=== PATIENT | female | born 1965 | race Caucasian/White ===

== ENCOUNTER 2025-02-06 03:49 | Inpatient (IN) | payer MEDICARE, BC ==
[2025-02-06] MEDS ORDERED: ALBUTEROL NEBULIZED 2.5 MG/3 ML INHALATION PRN (04:15)
[2025-02-06] MEDS ORDERED: PNEUMONIA PROTOCOL UTILIZED 1 EACH MISC PO PRN (04:15)
--- NOTE | 2025-02-06 04:18 | ED ---
General Adult HPI - General Chief complaint: Shortness of Breath Stated complaint: EFREM Time Seen by Provider: 02/06/25 03:56 Source: patient, EMS Mode of arrival: EMS - History of Present Illness Initial comments: This is a pleasant 59-year-old female past medical history of diabetes presenting today transferred from [facility] after being found to have bilateral pneumonia with an elevated troponin. Patient states symptoms ongoing x 1 week. She states every time she gets up to walk to the bathroom or across her bedroom after walking approximate 20 feet she becomes significantly short of breath and then begins to feel panicked making her more short of breath. States that her son had upper respiratory symptoms 2 weeks ago and her is currently been treated bronchitis. Patient has not had any sputum production, fevers or chills. Denies palpitations, abdominal pain, melena or hematochezia. States that she typically gets bronchitis annually however her symptoms are different from when she is experienced over the course last week. She denies any lower extremity swelling. States she feels left-sided chest tightness when she ambulates for any distance but currently denies any chest pain. Patient has no history ACS, COPD or asthma. She is a non-smoker. States that her siblings and her father all have significant cardiac history with prior cardiac stents, had a brother who from ACS. - Related Data Home Medications Medication Instructions Recorded Confirmed Cyclobenzaprine [Flexeril] 10 mg PO DAILY PRN 02/06/25 02/06/25 Cyclobenzaprine [Flexeril] 10 mg PO HS 02/06/25 02/06/25 Empagliflozin [Jardiance] 25 mg PO DAILY 02/06/25 02/06/25 Escitalopram [Lexapro] 20 mg PO BID 02/06/25 02/06/25 HYDROcodone/APAP 7.5-325MG [[place] 1 tab PO TID 02/06/25 02/06/25 7.5-325] INSULIN ASPART (NovoLOG) [NovoLOG 35 unit SQ AC-TID 02/06/25 02/06/25 (formulary)] Insulin Glargine (Lantus) [Lantus 100 unit SQ BID 02/06/25 02/06/25 Vial] Omeprazole [PriLOSEC] 40 mg PO DAILY 02/06/25 02/06/25 buPROPion HCL [Wellbutrin XL] 150 mg PO DAILY 02/06/25 02/06/25 busPIRone HCL 15 mg PO DAILY 02/06/25 02/06/25 Previous Rx's Medication Instructions Recorded Aspirin 81 mg PO DAILY #30 tab 02/10/25 Atorvastatin [Lipitor] 80 mg PO HS 30 Days #30 tab 02/10/25 Furosemide [Lasix] 20 mg PO BID@0900,1600 30 Days #60 02/10/25 tab Losartan [Cozaar] 25 mg PO DAILY 30 Days #30 tab 02/10/25 Metoprolol Succinate (ER) [Toprol 75 mg PO DAILY 30 Days #30 tab 02/10/25 XL] Nitroglycerin Sl Tabs [Nitrostat] 0.4 mg SUBLINGUAL Q5M PRN #30 tab 02/10/25 Spironolactone [Aldactone] 25 mg PO DAILY 30 Days #30 tab 02/10/25 Ticagrelor [Brilinta] 90 mg PO BID 30 Days #60 tab 02/10/25 Allergies Allergy/AdvReac Type Severity Reaction Status Date / Time No Known Allergies Allergy Verified 02/06/25 08:43 Review of Systems ROS Statement: Those systems with pertinent positive or pertinent negative responses have been documented in the HPI. ROS Other: All systems not noted in ROS Statement are negative. Past Medical History Past Medical History: Diabetes Mellitus History of Any Multi-Drug Resistant Organisms: None Reported Past Surgical History: Cholecystectomy, Hernia Repair, Hysterectomy, Orthopedic Surgery, Tonsillectomy Smoking Status: Never smoker General Exam - General Exam Comments Initial Comments: PE: CONSTITUTIONAL: No apparent distress, well appearing SKIN: Warm, dry, no jaundice, hives or petechiae EYES: Pupils are equally round, extraocular movements intact without nystagmus, clear conjunctiva, non-icteric sclera HENT: Normocephalic, atraumatic, moist mucus membranes, oropharynx clear without exudates NECK: , Full range of motion, normal appearance PULMONARY: Scant rhonchi in the mid left lung field, decreased breath sounds in the bases, mild tachypnea, no excess or muscle use or stridor no wheezes CARDIOVASCULAR: Mild echocardiac, regular rate, rhythm, normal S1 and S2. No appreciated murmurs, rubs or gallops. Strong radial pulses with intact distal perfusion. Bilateral 1+ nonpitting edema GASTROINTESTINAL: Soft, active bowel sounds throughout, non-tender, non- distended, no palpable masses, no rebound or guarding. No hepatosplenomegaly MUSCULOSKELETAL: Extremities have no gross deformity NEUROLOGIC:_a/o x 3, GCS 15, normal mentation and speech. Moves all extremities x 4 without motor or sensory deficit PSYCHIATRIC:_normal mood and affect, thought process is clear and linear Course Vital Signs 02/06/25 02/06/25 02/06/25 03:51 03:58 06:03 Temperature 98.5 F 98.2 F Pulse Rate 106 H 93 Respiratory 24 24 18 Rate Blood Pressure 152/82 101/64 O2 Sat by Pulse 97 96 Oximetry 02/06/25 02/06/25 02/06/25 07:26 09:00 09:56 Temperature 98 F Pulse Rate 93 94 93 Respiratory 16 20 20 Rate Blood Pressure 115/73 117/69 117/69 O2 Sat by Pulse 96 98 97 Oximetry 02/06/25 02/06/25 02/06/25 11:00 12:00 13:00 Temperature Pulse Rate 85 86 83 Respiratory 16 20 16 Rate Blood Pressure 110/60 106/60 102/58 O2 Sat by Pulse 98 98 95 Oximetry 02/06/25 14:00 Temperature Pulse Rate 86 Respiratory 16 Rate Blood Pressure 104/68 O2 Sat by Pulse 98 Oximetry EKG Findings - EKG Comments: EKG Findings:: Sinus tachycardia, rate 106 beats minute IL interval 160 ms QT/QTc 355/470 ms, borderline left axis deviation, low voltage EKG, no ST elevations or depressions, no arrhythmia, right bundle branch block, compared to EKG performed at transferring facility, EKG here is low voltage compared to prior otherwise no significant changes Medical Decision Making - Medical Decision Making Was pt. sent in by a medical professional or institution (, PA, ROLLER COASTER ENGINEER, urgent care, hospital, or senior living...) When possible be specific @ -Patient was transferred from [place] emergency department Did you speak to anyone other than the patient for history (EMS, parent, family, police, friend...)? What history was obtained from this source I spoke with Dr. Pradhan, emergency physician at [facility], states patient is being transferred for community-acquired pneumonia with elevated troponin Did you review nursing and triage notes (agree or disagree)? Why? @ -[I reviewed nursing and triage notes] Were old charts reviewed (outside hosp., previous admission, EMS record, old EK G, old radiological studies, urgent care reports/EKG's, senior living records)? Report findings @ -[Medical records reviewed]-personally reviewed chart provided with patient from transferring facility EKG showed sinus rhythm, rate 98 bpm right bundle branch block, no ST elevations, compared to EKG performed on arrival here, EKG here is low voltage otherwise no significant changes from prior. Patient had a CTA chest done, reviewed report that states patient had pneumonia with small bilateral pleural effusions but no PE, at transferring facility patient was given 40 mg IV Lasix, Rocephin, azithromycin as well as aspirin, troponin at transferring facility 2.68, BNP 732, RSV flu testing negative Differential Diagnosis (chest pain, altered mental status, abdominal pain women, abdominal pain men, vaginal bleeding, weakness, fever, dyspnea, syncope, headache, dizziness, GI bleed, back pain, seizure, CVA, palpatations, mental health, musculoskeletal)? @ -Differential Dyspnea: Coronary syndrome, arrhythmia, tamponade, asthma, COPD, pulmonary embolism, pneumonia, pneumothorax, pulmonary effusion, anaphylaxis, diabetic ketoacidosis, flailed chest, pulmonary contusion, diaphragmatic rupture, anemia, neuromuscular, this is not meant to be an all-inclusive list. EKG interpreted by me (3pts min.). @ -[As above] X-rays interpreted by me (1pt min.). @ -[None done] CT interpreted by me (1pt min.). @ -[None done] U/S interpreted by me (1pt. min.). @ -[None done] What testing was considered but not performed or refused? (CT, X-rays, U/S, labs)? Why? @ -[None] What meds were considered but not given or refused? Why? @ -[None] Did you discuss the management of the patient with other professionals (professionals i.e. , PA, ROLLER COASTER ENGINEER, lab, RT, psych nurse, clinical social worker, bench technician, teacher, light armored reconnaissance officer, case loader operator)? Give summary @ -[No] Was smoking cessation discussed for >3mins.? @ -[No] Was critical care preformed (if so, how long)? Yes, 35 minutes Were there social determinants of health that impacted care today? How? (Homelessness, low income, unemployed, alcoholism, drug addiction, transportation, low edu. Level, literacy, decrease access to med. care, intermediate, rehab)? @ -[No] Was there de-escalation of care discussed even if they declined (Discuss DNR or withdrawal of care, Hospice)? @ -[No] What co-morbidities impacted this encounter? (DM, HTN, Smoking, COPD, CAD, Cancer, CVA, ARF, Chemo, Hep., AIDS, mental health diagnosis, sleep apnea, morbid obesity)? @Obesity Was patient admitted / discharged? Hospital course, mention meds given and route, prescriptions, significant lab abnormalities, going to OR and other pertinent info. @ -Admissionthis is a 59-year-old female history of diabetes presenting today as a transfer from [facility] after being found to have pneumonia with bilateral pleural effusions and an elevated troponin. Symptoms ongoing x 1 week. On arrival patient walked to the bathroom and upon returning from the bathroom was significantly dyspneic. With rest her symptoms improved. Pulse ox on room air between 90 to 96%. Patient was placed on 2 L for comfort. Mildly tachycardic with heart rate 100. Blood pressure stable. Scant rhonchi in the left midlung field. No increased work of breathing at rest. Discussed with patient plan for admission due to elevated troponin in setting of community- acquired pneumonia. Will repeat troponin here given a high-sensitivity troponin was used at transferring facility. Will repeat BNP as well. Patient agreeable plan for admission. BNP significantly to thousand 870, troponin is 1.910 this does appear to be down from troponin of 2.68 at transferring facility will continue to trend. She currently denies any chest pain. She did receive 40 mg IV Lasix prior to arrival will administer an additional 40 due to elevated BNP and pleural effusions. Case discussed with Dr. Lawrence, kindly accepts pt for admission. Undiagnosed new problem with uncertain prognosis? @ -[No] Drug Therapy requiring intensive monitoring for toxicity (Heparin, Nitro, Insulin, Cardizem)? @ -[No] Were any procedures done? @ -[No] Diagnosis/symptom? Elevated troponin, new onset CHF, bilateraly pneumonia Acute, or Chronic, or Acute on Chronic? @ -acute Uncomplicated (without systemic symptoms) or Complicated (systemic symptoms)? @ complicated Side effects of treatment? @ -[No] Exacerbation, Progression, or Severe Exacerbation? @ -[No] Poses a threat to life or bodily function? How? (Chest pain, [place], [place], pneumonia, PE, COPD, DKA, ARF, appy, cholecystitis, CVA, Diverticulitis, Homicidal, Suicidal, threat to staff... and all critical care pts) @Yes, if left untreated could lead to septic or cardiogenic shock and - Lab Data Result diagrams: 02/09/25 05:28 02/10/25 02:32 Disposition Clinical Impression: Community acquired pneumonia Disposition: ADMITTED IP TO THIS HOSP Condition: Stable
[2025-02-06 04:45] LABS: Basophils % (A) 0 %; Eosinophils # (A) 0.4 k/uL (0-0.7); Eosinophils % (A) 4 %; HCT 42.2 % (34.0-46.0); HGB 12.9 gm/dL (11.4-16.0); Hypochromasia Moderate; Lymphocytes # (A) 1.8 k/uL (1.0-4.8); Lymphocytes % (A) 17 %; MCH 25.8 pg (25.0-35.0); MCHC 30.5 g/dL (31.0-37.0); MCV 84.5 fL (80.0-100.0); Mean Platelet Volume 7.2; Monocytes # (A) 0.5 k/uL (0-1.0); Monocytes % (A) 5 %; Neutrophils # (A) 7.8 k/uL (1.3-7.7); Neutrophils % (A) 73 %; Platelet Count 311 k/uL (150-450); RBC 4.99 m/uL (3.80-5.40); RDW 14.5 % (11.5-15.5); WBC 10.7 k/uL (3.8-10.6)
[2025-02-06 05:10] LABS: ALT 21 U/L (4-34); AST 37 U/L (14-36); African American GFR (CKD) 76 (>60 ml/min/1.73 sqM); Albumin 3.4 g/dL (3.5-5.0); Alkaline Phosphatase 75 U/L (38-126); Anion Gap 11 mmol/L; Blood Urea Nitrogen 25 mg/dL (7-17); C Reactive Protein 3.6 mg/dL (<1.0); Carbon Dioxide 24 mmol/L (22-30); Chloride 103 mmol/L (98-107); Glucose 94 mg/dL (74-99); Magnesium 1.9 mg/dL (1.6-2.3); Non-African American GFR(CKD) 66 (>60 ml/min/1.73 sqM); Potassium 3.9 mmol/L (3.5-5.1); Sodium 138 mmol/L (137-145); Total Bilirubin 0.9 mg/dL (0.2-1.3); Total Protein 6.4 g/dL (6.3-8.2)
[2025-02-06 05:13] LABS: Prothrombin Time 10.9 sec (10.0-12.5)
[2025-02-06 05:15] LABS: NT-Pro-B-Type Natriuretic Pept 6870 pg/mL
[2025-02-06] MEDS: FUROSEMIDE 10 MG/ML 2 ML VIAL IV ONE (06:41)
[2025-02-06] MEDS: ENOXAPARIN 40 MG/0.4 ML SYRINGE SQ SCH (09:15)
[2025-02-06] MEDS: ACETAMINOPHEN TAB 325 MG TAB PO PRN (09:54)
[2025-02-06] MEDS ORDERED: HEPARIN SODIUM 1,000 UN/ML (10ML VL) IV PRN (10:10)
[2025-02-06] MEDS ORDERED: NITROGLYCERIN SL TABS 0.4 MG TAB SUBLINGUAL PRN ×2 (10:16→15:38)
[2025-02-06] MEDS ORDERED: ALPRAZolam 0.5 MG TAB PO PRN (10:16)
[2025-02-06] MEDS ORDERED: ALPRAZolam 0.25 MG TAB PO PRN (10:16)
[2025-02-06] MEDS: METOPROLOL TARTRATE 25 MG TAB PO SCH (10:29)
[2025-02-06] MEDS: ATORVASTATIN 80 MG TAB PO STA (10:30)
[2025-02-06] MEDS: HEPARIN SODIUM 1,000 UN/ML (10ML VL) IV ONE (10:30)
[2025-02-06] MEDS: HEPARIN SOD,PORK IN 0.45% NACL 25,000 UNIT in 0.45% NACL 1 250ML.BAG IV SCH (10:31)
[2025-02-06] MEDS: SODIUM CHLORIDE 0.9% 1,000 ML in EMPTY BAG 1 BAG IV SCH ×2 (10:39→17:25)
[2025-02-06] MEDS: ASPIRIN 325 MG TAB PO STA (10:39)
--- NOTE | 2025-02-06 10:55 | P.CRDCN ---
History of Present Illness History of present illness: HISTORY OF PRESENT ILLNESS: This is a 59-year-old female with a past medical history significant for diabetes and obesity. Patient does not follow with a investments manager. We have been asked to see the patient in consultation for elevated troponin. Patient examined at the bedside in the emergency room. Patient states she has been feeling short of breath for the past week. She states her had bronchitis and she thought she had it as well. She states she has been getting short of breath walking from 1 room to another. She denies any chest pain or pressure. She states that she went to an urgent care on Sunday and was told that her lungs were fine. However she states that her symptoms continued and she messaged her doctor again and was told to come to the emergency room. Patient presented to [facility] and was diagnosed with pneumonia. She was also found to have elevated troponins and was transferred to [facility] for further evaluation. She denies any known history of CAD. She reports having a cardiac catheterization greater than 10 years ago that was normal to her knowledge. She does report a significant family history of premature CAD. DIAGNOSTICS: - EKG reveals sinus tachycardia with nonspecific ST-T wave changes - CT scan obtained at [facility] revealed bilateral pneumonia, no evidence of pulmonary embolism, pleural effusions, and coronary artery calcifications. - Laboratory data: WBC 10.7. Hemoglobin 12.9. Platelet count 311. Sodium 138. Potassium 3.9. BUN 25. Creatinine 0.94. Troponin 1.910. 1.940. Troponin at outside facility 2.68. proBNP 6870. - Current home cardiac medications include none - No previous echocardiogram, stress test, or cardiac catheterization available in EMR for review REVIEW OF SYSTEMS: At the time of my exam: CONSTITUTIONAL: Denies fever or chills. HEENT: Denies blurred vision, vision changes, or eye pain. Denies hemoptysis CARDIOVASCULAR: Denies chest pain. Denies orthopnea. Denies PND. Denies palpitations RESPIRATORY: Denies shortness of breath. GASTROINTESTINAL: Denies abdominal pain. Denies nausea or vomiting. HEMATOLOGIC: Denies bleeding disorders. GENITOURINARY: Denies any blood in urine. SKIN: Denies pruitis. Denies rash. PHYSICAL EXAM: VITAL SIGNS: Reviewed. GENERAL: Well-developed in no acute distress. HEENT: Head is normocephalic. Pupils are equal, round. Sclerae anicteric. Mucous membranes of the mouth are moist. Neck supple. No JVD or thyromegaly LUNGS: Respirations even and unlabored. Lungs essentially clear to auscultation bilaterally. HEART: Regular rate and rhythm. S1 and S2 heard. ABDOMEN: Soft. Nondistended. Nontender. EXTREMITIES: Normal range of motion. No clubbing or cyanosis. Peripheral pulses intact. No lower extremity edema NEUROLOGIC: Awake and alert. Oriented x 3. ASSESSMENT: Shortness of breath Non-STEMI Coronary artery calcifications, per CT Acute heart failure, type unknown, echo pending, proBNP 6870 Bilateral pleural effusions Bilateral pneumonia, per CTA at [facility] Diabetes Morbid obesity: BMI 47.4 Family history of premature coronary artery disease PLAN: Obtain 2D echo to assess cardiac structure and function Begin IV heparin Begin aspirin, atorvastatin, and metoprolol Give 1 dose of IV Lasix 40 mg Check lipid panel and hemoglobin A1c Patient to undergo cardiac catheterization today with Dr. De Paz Further recommendations pending patient course Nurse practitioner note has been reviewed by physician. Signing provider agrees with the documented findings, assessment, and plan of care documented by TERMITE TREATER as a scribe. Past Medical History Past Medical History: Diabetes Mellitus History of Any Multi-Drug Resistant Organisms: None Reported Past Surgical History: Cholecystectomy, Hernia Repair, Hysterectomy, Orthopedic Surgery, Tonsillectomy Smoking Status: Never smoker Medications and Allergies Home Medications Medication Instructions Recorded Confirmed Type Cyclobenzaprine [Flexeril] 10 mg PO DAILY PRN 02/06/25 02/06/25 History Cyclobenzaprine [Flexeril] 10 mg PO HS 02/06/25 02/06/25 History Empagliflozin [Jardiance] 25 mg PO DAILY 02/06/25 02/06/25 History Escitalopram [Lexapro] 20 mg PO BID 02/06/25 02/06/25 History HYDROcodone/APAP 7.5-325MG [[place] 1 tab PO TID 02/06/25 02/06/25 History 7.5-325] INSULIN ASPART (NovoLOG) [NovoLOG 35 unit SQ AC-TID 02/06/25 02/06/25 History (formulary)] Insulin Glargine (Lantus) [Lantus 100 unit SQ BID 02/06/25 02/06/25 History Vial] Omeprazole [PriLOSEC] 40 mg PO DAILY 02/06/25 02/06/25 History buPROPion HCL [Wellbutrin XL] 150 mg PO DAILY 02/06/25 02/06/25 History busPIRone HCL [Buspirone HCl] 15 mg PO DAILY 02/06/25 02/06/25 History Allergies Allergy/AdvReac Type Severity Reaction Status Date / Time No Known Allergies Allergy Verified 02/06/25 08:43 Physical Exam Vitals: Vital Signs Temp Pulse Resp BP Pulse Ox 02/06/25 09:56 93 20 117/69 97 02/06/25 09:00 94 20 117/69 98 02/06/25 07:26 98 F 93 16 115/73 96 02/06/25 06:03 98.2 F 93 18 101/64 96 02/06/25 03:58 98.5 F 106 H 24 152/82 97 02/06/25 03:51 24 Intake and Output 02/05/25 02/06/25 02/06/25 22:59 06:59 14:59 Other: Weight 129.274 kg Results 02/06/25 04:38 02/06/25 04:38 Cardiac Enzymes 02/06/25 02/06/25 02/06/25 Range/Units 04:38 04:38 07:14 AST 37 H (14-36) U/L Troponin I 1.910 H* 1.940 H* (0.000-0.034) ng/mL Coagulation 02/06/25 Range/Units 04:38 PT 10.9 (10.0-12.5) sec APTT 22.0 (22.0-30.0) sec CBC 02/06/25 Range/Units 04:38 WBC 10.7 H (3.8-10.6) k/uL RBC 4.99 (3.80-5.40) m/uL Hgb 12.9 (11.4-16.0) gm/dL Hct 42.2 (34.0-46.0) % Plt Count 311 (150-450) k/uL Comprehensive Metabolic Panel 02/06/25 Range/Units 04:38 Sodium 138 (137-145) mmol/L Potassium 3.9 (3.5-5.1) mmol/L Chloride 103 (98-107) mmol/L Carbon Dioxide 24 (22-30) mmol/L BUN 25 H (7-17) mg/dL Creatinine 0.94 (0.52-1.04) mg/dL Glucose 94 (74-99) mg/dL Calcium 9.0 (8.4-10.2) mg/dL AST 37 H (14-36) U/L ALT 21 (4-34) U/L Alkaline Phosphatase 75 (38-126) U/L Total Protein 6.4 (6.3-8.2) g/dL Albumin 3.4 L (3.5-5.0) g/dL Current Medications Generic Name Dose Route Start Last Admin Trade Name Freq PRN Reason Stop Dose Admin Acetaminophen 650 mg 02/06/25 04:15 02/06/25 09:54 Acetaminophen Tab 325 Mg Tab PO 650 mg Q6HR PRN Administration Fever and/ or Pain Albuterol Sulfate 2.5 mg 02/06/25 04:15 Albuterol Nebulized 2.5 Mg/3 Ml INHALATION RT-Q4H PRN Shortness Of Breath Or Wheezing Azithromycin 500 mg 02/07/25 09:00 Azithromycin 500 Mg Tab PO 02/08/25 09:01 DAILY [facility] Protocol Enoxaparin Sodium 40 mg 02/06/25 09:00 02/06/25 09:15 Enoxaparin 40 Mg/0.4 Ml Syringe SQ 40 mg DAILY KENYA Administration Ceftriaxone Sodium 2 gm/ 50 mls @ 100 mls/hr 02/07/25 09:00 Sodium Chloride IVPB 02/10/25 09:29 Q24HR KENYA Protocol Miscellaneous Information 1 each 02/06/25 04:15 Pneumonia Protocol Utilized 1 Each Misc PO ONCE PRN Per Protocol Intake and Output 02/05/25 02/06/25 02/06/25 22:59 06:59 14:59 Other: Weight 129.274 kg 02/06/25 04:38 02/06/25 04:38
[2025-02-06 11:15] LABS: Basophils % (A) 0 %; Eosinophils # (A) 0.6 k/uL (0-0.7); Eosinophils % (A) 5 %; HCT 44.5 % (34.0-46.0); HGB 13.5 gm/dL (11.4-16.0); Hypochromasia Slight; Lymphocytes # (A) 1.9 k/uL (1.0-4.8); Lymphocytes % (A) 16 %; MCH 25.7 pg (25.0-35.0); MCHC 30.4 g/dL (31.0-37.0); MCV 84.6 fL (80.0-100.0); Mean Platelet Volume 7.5; Monocytes # (A) 0.6 k/uL (0-1.0); Monocytes % (A) 5 %; Neutrophils # (A) 8.6 k/uL (1.3-7.7); Neutrophils % (A) 71 %; Platelet Count 299 k/uL (150-450); RBC 5.26 m/uL (3.80-5.40); RDW 14.7 % (11.5-15.5)
[2025-02-06] MEDS: FUROSEMIDE 10 MG/ML 4 ML VIAL IV STA (11:36)
[2025-02-06] MEDS: IV FLUID CONTINUATION 1,000 ML IV ONE (14:46)
[2025-02-06] MEDS: VERAPAMIL SYRINGE (5 MG/10 ML) INTRAARTER ONE (14:52)
[2025-02-06] MEDS: LIDOCAINE 1% INJ 10MG/ML (30 ML VIAL-PF) SQ ONE (14:52)
[2025-02-06] MEDS: MIDAZOLAM 2 MG/2 ML VIAL IVP ONE (14:52)
[2025-02-06] MEDS: HEPARIN SODIUM 1,000 UN/ML (10ML VL) IVP ONE (14:59)
[2025-02-06] MEDS: TICAGRELOR 90 MG TAB PO ONE (14:59)
[2025-02-06] MEDS: IOPAMIDOL-300 100ML BTL INJ ONE ×2 (15:09→15:37)
[2025-02-06 15:32] LABS: Chol/HDL Ratio 5.45 Ratio; LDL Cholesterol,Calculated 98.6 mg/dL (0.0-131.0)
[2025-02-06] MEDS: PHENYLEPHRINE-0.9% NACL SYG 1,000 MCG/10 ML SYRINGE IVP ONE (15:35)
[2025-02-06] MEDS: niCARdipine Syringe (1,000 mcg/10 mL) INTRAARTER ONE (15:35)
[2025-02-06] MEDS ORDERED: ATROPINE SULFATE 0.1 MG/ML 10ML SYRINGE IV PRN (15:38)
[2025-02-06] MEDS ORDERED: RX INFO: IV CONTRAST WAS GIVEN 1 EACH MISC MISCELLANE PRN (15:38)
[2025-02-06] MEDS ORDERED: ZOLPIDEM 5 MG TAB PO PRN (15:38)
[2025-02-06] MEDS ORDERED: MAG HYDROX/AL HYDROX/SIMETH 30 ML CUP PO PRN (15:38)
[2025-02-06 16:26] LABS: Glucose,Whole Blood 73 mg/dL (70-110)
[2025-02-06] MEDS ORDERED: CYCLOBENZAPRINE 10 MG TAB PO PRN (17:13)
--- NOTE | 2025-02-06 17:19 | P.HPIM ---
History of Present Illness H&P Date: 02/06/25 Chief Complaint: Shortness of breath 59-year-old female past medical history of diabetes presenting today transferred from [facility] after being found to have bilateral pneumonia with an elevated troponin. Patient states symptoms ongoing x 1 week. She states every time she gets up to walk to the bathroom or across her bedroom after walking approximate 20 feet she becomes significantly short of breath and then begins to feel panicked making her more short of breath. States that her son had upper respiratory symptoms 2 weeks ago and her is currently been treated bronchitis. Patient has not had any sputum production, fevers or chills. Denies palpitations, abdominal pain, melena or hematochezia. States that she typically gets bronchitis annually however her symptoms are different from when she is experienced over the course last week. She denies any lower extremity swelling. States she feels left-sided chest tightness when she ambulates for any distance but currently denies any chest pain. Patient has no history ACS, COPD or asthma. She is a non-smoker. States that her siblings and her father all have significant cardiac history with prior cardiac stents, had a brother who from ACS. - EKG reveals sinus tachycardia with nonspecific ST-T wave changes - CT scan obtained at [facility] revealed bilateral pneumonia, no evide nce of pulmonary embolism, pleural effusions, and coronary artery calcifications. - Laboratory data: WBC 10.7. Hemoglobin 12.9. Platelet count 311. Sodium 138. Potassium 3.9. BUN 25. Creatinine 0.94. Troponin 1.910. 1.940. Troponin at outside facility 2.68. proBNP 6870. Review of Systems REVIEW OF SYSTEMS: CONSTITUTIONAL: No fever, no malaise, no fatigue. HEENT: No recent visual problems or hearing problems. Denied any sore throat. CARDIOVASCULAR: No chest pain, orthopnea, PND, no palpitations, no syncope. PULMONARY: No shortness of breath, no cough, no hemoptysis. GASTROINTESTINAL: No diarrhea, no nausea, no vomiting, no abdominal pain. NEUROLOGICAL: No headaches, no weakness, no numbness. HEMATOLOGICAL: Denies any bleeding or petechiae. GENITOURINARY: Denies any burning micturition, frequency, or urgency. MUSCULOSKELETAL/RHEUMATOLOGICAL: Denies any joint pain, swelling, or any muscle pain. ENDOCRINE: Denies any polyuria or polydipsia. The rest of the 14-point review of systems is negative. Past Medical History Past Medical History: Diabetes Mellitus History of Any Multi-Drug Resistant Organisms: None Reported Past Surgical History: Cholecystectomy, Hernia Repair, Hysterectomy, Orthopedic Surgery, Tonsillectomy Smoking Status: Never smoker Medications and Allergies Home Medications Medication Instructions Recorded Confirmed Type Cyclobenzaprine [Flexeril] 10 mg PO DAILY PRN 02/06/25 02/06/25 History Cyclobenzaprine [Flexeril] 10 mg PO HS 02/06/25 02/06/25 History Empagliflozin [Jardiance] 25 mg PO DAILY 02/06/25 02/06/25 History Escitalopram [Lexapro] 20 mg PO BID 02/06/25 02/06/25 History HYDROcodone/APAP 7.5-325MG [Roberts 1 tab PO TID 02/06/25 02/06/25 History 7.5-325] INSULIN ASPART (NovoLOG) [NovoLOG 35 unit SQ AC-TID 02/06/25 02/06/25 History (formulary)] Insulin Glargine (Lantus) [Lantus 100 unit SQ BID 02/06/25 02/06/25 History Vial] Omeprazole [PriLOSEC] 40 mg PO DAILY 02/06/25 02/06/25 History buPROPion HCL [Wellbutrin XL] 150 mg PO DAILY 02/06/25 02/06/25 History busPIRone HCL [Buspirone HCl] 15 mg PO DAILY 02/06/25 02/06/25 History Allergies Allergy/AdvReac Type Severity Reaction Status Date / Time No Known Allergies Allergy Verified 02/06/25 08:43 Physical Exam Vitals: Vital Signs Temp Pulse Resp BP Pulse Ox 02/06/25 12:00 86 20 106/60 98 02/06/25 11:00 85 16 110/60 98 02/06/25 09:56 93 20 117/69 97 02/06/25 09:00 94 20 117/69 98 02/06/25 07:26 98 F 93 16 115/73 96 02/06/25 06:03 98.2 F 93 18 101/64 96 02/06/25 03:58 98.5 F 106 H 24 152/82 97 02/06/25 03:51 24 Intake and Output 02/05/25 02/06/25 02/06/25 22:59 06:59 14:59 Other: Weight 129.274 kg CONSTITUTIONAL: No apparent distress, well appearing SKIN: Warm, dry, no jaundice, hives or petechiae EYES: Pupils are equally round, extraocular movements intact without nystagmus, clear conjunctiva, non-icteric sclera HENT: Normocephalic, atraumatic, moist mucus membranes, oropharynx clear without exudates NECK: , Full range of motion, normal appearance PULMONARY: Scant rhonchi in the mid left lung field, decreased breath sounds in the bases, mild tachypnea, no excess or muscle use or stridor no wheezes CARDIOVASCULAR: Mild echocardiac, regular rate, rhythm, normal S1 and S2. No appreciated murmurs, rubs or gallops. Strong radial pulses with intact distal perfusion. Bilateral 1+ nonpitting edema GASTROINTESTINAL: Soft, active bowel sounds throughout, non-tender, non- distended, no palpable masses, no rebound or guarding. No hepatosplenomegaly MUSCULOSKELETAL: Extremities have no gross deformity NEUROLOGIC:_a/o x 3, GCS 15, normal mentation and speech. Moves all extremities x 4 without motor or sensory deficit PSYCHIATRIC:_normal mood and affect, thought process is clear and linear Results CBC & Chem 7: 02/06/25 10:57 02/06/25 04:38 Labs: Abnormal Lab Results - Last 24 Hours (Table) 02/06/25 02/06/25 02/06/25 Range/Units 04:38 04:38 04:38 WBC 10.7 H (3.8-10.6) k/uL MCHC 30.5 L (31.0-37.0) g/dL Neutrophils # 7.8 H (1.3-7.7) k/uL BUN 25 H (7-17) mg/dL AST 37 H (14-36) U/L Troponin I 1.910 H* (0.000-0.034) ng/mL C-Reactive Protein 3.6 H (<1.0) mg/dL Albumin 3.4 L (3.5-5.0) g/dL 02/06/25 02/06/25 Range/Units 07:14 10:57 WBC 12.0 H (3.8-10.6) k/uL MCHC 30.4 L (31.0-37.0) g/dL Neutrophils # 8.6 H (1.3-7.7) k/uL BUN (7-17) mg/dL AST (14-36) U/L Troponin I 1.940 H* (0.000-0.034) ng/mL C-Reactive Protein (<1.0) mg/dL Albumin (3.5-5.0) g/dL Assessment and Plan Assessment: 1. Shortness of breath; acute CHF -BNP is elevated at 6870 -Patient has received 1 dose of IV Lasix 40 mg; cardiology on board -Recommending 2D echo; further recommendations once echocardiogram is completed 2. Non-STEMI -Patient has been placed on IV heparin; has been placed on aspirin, atorvastatin and metoprolol -Cardiology planning cardiac catheterization -Coronary artery calcifications, per CT 3. Bilateral pleural effusions; likely related to acute CHF versus pneumonia -Patient has been placed on IV diuretic; continue IV antibiotics 4. Bilateral pneumonia, per CTA at [facility] -Ceftriaxone 2 g IV daily; azithromycin 500 mg IV daily; will monitor CBC, CRP and procalcitonin -Recommend blood cultures and sputum culture 5. Diabetes mellitus with long-term insulin use; patient takes Lantus 100 mg twice daily, NovoLog 35 units subcu before every meal; Jardiance 25 mg daily; we will resume home regimen after cardiac catheterization; monitor Accu-Cheks q. ACH S with insulin sliding scale 6. Hypertension; metoprolol 25 mg twice daily 7. Hyperlipidemia; Lipitor 80 mg p.o. nightly 8. Morbid obesity: BMI 47.4; patient educated on need for weight reduction DVT prophylaxis; SCD/IV heparin CODE STATUS; full code
[2025-02-06 19:53] LABS: Glucose,Whole Blood 126 mg/dL (70-110)
--- NOTE | 2025-02-06 19:55 | P.PCN ---
Date of Procedure: 02/06/25 Operative Findings: CARDIAC CATHETERIZATION AND PERCUTANEOUS CORONARY INTERVENTION PERFORMING PHYSICIAN: Valentín De Paz MD, [facility] PROCEDURE PERFORMED: 1. Selective right and left coronary angiogram and left heart catheterization 2. Successful stenting of mid RCA using 4.0 x 38 mm Xience ENEDELIA with an excel lent angiographic results 3. Successful stenting of the mid LCx using 2.25 x 18 mm Xience ENEDELIA with an excellent angiographic results 4. Adjunctive use of IVUS 4. Ultrasound-guided access of the right radial artery INDICATION: Acute non-ST elevation myocardial infarction COMPLICATION: None APPROACH: Right radial artery LEVEL OF SEDATION: Moderate with the sedation time off 48 minutes PROCEDURE DESCRIPTION: After obtaining informed consent the patient was brought to the cardiac Sugar Presser with right radial artery was cannulated using micropuncture technique under ultrasound guidance a micropuncture wire passed easily then I placed a 6 [place] 11 cm sheath at the right radial artery and give the patient 2 mg of verapamil intra-arterial and 5000's of heparin intravenous with continuous ACT monitoring. Selective right and left coronary angiogram and left heart catheterization performed using JR4 and JL 3.5 catheters. Left heart catheterization was performed using the JR4 catheter which crossed the aortic valve. After that I decided to intervene on the RCA with anticoagulation was initiated using heparin with continuous ACT monitoring. Subsequently I did engage the RCA using JR4 guiding catheter. I did wired using a run-through wire. IVUS was performed and showed a diameter between 3.5 to 4 mm. Predilatation was performed using 3.5 mm noncompliant balloon before I deployed 4.0 x 38 mm stent where the stent was positioned under fluoroscopy guidance and deployed under fluoroscopy guidance and postdilated using 4 mm NC balloon with final angiogram showing excellent angiographic results with BEAAT-3 flow. After that I decided to intervene on the left circumflex coronary artery. I did engage the left main using JL 3.5 guiding catheter with I did wired the left circumflex and cross acute total occlusion using a run-through wire. IVUS was also performed and showed a diameter around 2.25 mm. I did predilatation using 2.0 mm balloon before I deployed 2.25 x 18 mm stent where the stent was positioned under fluoroscopy guidance and deployed under fluoroscopy guidance. Postdilatation was performed using 2.5 mm NC balloon. Final angiogram showed excellent angiographic results and the procedure was completed with no complication SELECTIVE CORONARY ANGIOGRAM: The right coronary artery: Large caliber vessel and a dominant vessel. The RCA has a plaque rupture in the midportion with BEATA II flow and lesion appears to be in the range of 99.9% Left main: Is angiographically normal The left circumflex: Large caliber vessel nondominant vessel and the LCx appears to be occluded in the AV groove The left anterior descending artery: Large caliber vessel. The LAD has mild to moderate diffuse disease with no evidence of high-grade stenosis identified. HEMODYNAMICS: LVEDP was about 20 mmHg with no significant gradient across aortic valve CONCLUSION: 1. Critical disease involving the mid RCA. I did perform successful PCI of the mid RCA with an excellent angiographic results 2. Occluded left circumflex. I did perform successful PCI of the LCx as described above with an excellent angiographic results 3. Mild to moderate diffuse disease involving the LAD with no evidence of high- grade stenosis 4. Evaded left-sided filling pressure POSTPROCEDURE MANAGEMENT: 1. Dual antiplatelet therapy using aspirin and Brilinta for 12 month 2. Aggressive cholesterol control 3. Follow-up with the patient
[2025-02-06] MEDS: ESCITALOPRAM 20 MG TAB PO SCH (20:53)
[2025-02-06] MEDS: HYDROcodone/APAP 7.5-325MG 1 EACH TAB PO SCH (20:53)
[2025-02-06] MEDS: CYCLOBENZAPRINE 10 MG TAB PO SCH (20:53)
[2025-02-06] MEDS: ATORVASTATIN 80 MG TAB PO SCH (20:54)
[2025-02-07 06:03] LABS: Glucose,Whole Blood 132 mg/dL (70-110)
[2025-02-07 06:20] LABS: Basophils % (A) 0 %; Eosinophils # (A) 0.5 k/uL (0-0.7); Eosinophils % (A) 5 %; HCT 41.7 % (34.0-46.0); HGB 12.8 gm/dL (11.4-16.0); Hypochromasia Slight; Lymphocytes # (A) 1.4 k/uL (1.0-4.8); Lymphocytes % (A) 14 %; MCH 25.9 pg (25.0-35.0); MCHC 30.7 g/dL (31.0-37.0); MCV 84.5 fL (80.0-100.0); Mean Platelet Volume 8.2; Monocytes # (A) 0.6 k/uL (0-1.0); Monocytes % (A) 6 %; Neutrophils # (A) 7.7 k/uL (1.3-7.7); Neutrophils % (A) 74 %; Platelet Count 282 k/uL (150-450); RBC 4.93 m/uL (3.80-5.40); RDW 14.8 % (11.5-15.5); WBC 10.4 k/uL (3.8-10.6)
[2025-02-07] MEDS: PANTOPRAZOLE 40 MG TABLET PO SCH (06:29)
[2025-02-07 06:32] LABS: Prothrombin Time 11.3 sec (10.0-12.5)
[2025-02-07 06:44] LABS: African American GFR (CKD) 65 (>60 ml/min/1.73 sqM); Anion Gap 7 mmol/L; Blood Urea Nitrogen 30 mg/dL (7-17); Carbon Dioxide 32 mmol/L (22-30); Chloride 101 mmol/L (98-107); Glucose 126 mg/dL (74-99); Non-African American GFR(CKD) 56 (>60 ml/min/1.73 sqM); Potassium 4.3 mmol/L (3.5-5.1); Sodium 140 mmol/L (137-145)
--- NOTE | 2025-02-07 06:54 | XR ---
EXAMINATION TYPE: XR chest 2V DATE OF EXAM: 02/07/2025 6:47 AM COMPARISON: Outside institution CTA chest 02/05/2025 TECHNIQUE: XR chest 2V Frontal and lateral views of the chest. CLINICAL INDICATION:Female, 59 years old with history of SOB, pneumonia?; FINDINGS: Lungs/Pleura: No pneumothorax. Trace bilateral pleural effusions. Diffuse interstitial prominence. Heart/mediastinum: Cardiomediastinal silhouette is enlarged. Musculoskeletal: No acute osseous pathology. IMPRESSION: Cardiomegaly, diffuse interstitial prominence and trace bilateral pleural effusions. Correlate with B MANAGER OF SALES for congestive heart failure. Superimposed infectious process is not excluded. [facility], , 02/07/2025 6:51 AM
[2025-02-07] MEDS ORDERED: HEPARIN SODIUM,PORCINE (1 ML) 2,500 UNIT in SODIUM CHLORIDE 0.9% 250 ML IRRIGATION PRN (07:00)
[2025-02-07] MEDS ORDERED: HEPARIN SODIUM,PORCINE 10,000 UNIT in SODIUM CHLORIDE 0.9% 1,000 ML IRRIGATION PRN (07:00)
[2025-02-07] MEDS: busPIRone HCl 5 MG TAB PO SCH (08:22)
[2025-02-07] MEDS: DAPAGLIFLOZIN PROPANEDIOL 10 MG TABLET PO SCH (08:22)
[2025-02-07] MEDS: TICAGRELOR 90 MG TAB PO SCH (08:22)
[2025-02-07] MEDS: buPROPion XL 150 MG TAB.ER.24H PO SCH (08:22)
[2025-02-07] MEDS: ASPIRIN 81 MG PO SCH (08:22)
[2025-02-07] MEDS: AZITHROMYCIN 500 MG TAB PO SCH (08:22)
--- NOTE | 2025-02-07 10:54 | P.PN ---
Subjective Progress Note Date: 02/07/25 HISTORY OF PRESENT ILLNESS: This is a 59-year-old female with a past medical history significant for di abetes and obesity. Patient does not follow with a media specialist. We have been asked to see the patient in consultation for elevated troponin. Patient examined at the bedside in the emergency room. Patient states she has been feeling short of breath for the past week. She states her had bronchitis and she thought she had it as well. She states she has been getting short of breath walking from 1 room to another. She denies any chest pain or pressure. She states that she went to an urgent care on Sunday and was told that her lungs were fine. However she states that her symptoms continued and she messaged her doctor again and was told to come to the emergency room. Patient presented to [facility] and was diagnosed with pneumonia. She was also found to have elevated troponins and was transferred to [facility] for further evaluation. She denies any known history of CAD. She reports having a cardiac catheterization greater than 10 years ago that was normal to her knowledge. She does report a significant family history of premature CAD. DIAGNOSTICS: - EKG reveals sinus tachycardia with nonspecific ST-T wave changes - CT scan obtained at [facility] revealed bilateral pneumonia, no evidence of pulmonary embolism, pleural effusions, and coronary artery calcifications. - Laboratory data: WBC 10.7. Hemoglobin 12.9. Platelet count 311. Sodium 138. Potassium 3.9. BUN 25. Creatinine 0.94. Troponin 1.910. 1.940. Troponin at outside facility 2.68. proBNP 6870. - Current home cardiac medications include none - No previous echocardiogram, stress test, or cardiac catheterization available in EMR for review 02/07 Patient seen and examined on the cardiac stepdown unit. Yesterday, patient underwent cardiac catheterization with Dr. De Paz which revealed critical disease involving the mid RCA, occluded left circumflex, mild to moderate diffuse disease in the LAD with no evidence of high-grade stenosis. Patient subsequently underwent successful PCI of the mid RCA and the left circumflex. Patient denies having chest pain chest pressure. Echocardiogram is pending. Blood pressure 130/70, heart rate 88, pulse ox 97% on 2 L nasal cannula. Repeat blood work reveals hemoglobin 12.8, BUN 30 creatinine 1.08. Triglycerides 99, cholesterol 145, LDL 98. Hemoglobin A1c 5.6. PHYSICAL EXAM: VITAL SIGNS: Reviewed. GENERAL: Well-developed in no acute distress. HEENT: Head is normocephalic. Pupils are equal, round. Sclerae anicteric. Mucous membranes of the mouth are moist. Neck supple. No JVD or thyromegaly LUNGS: Respirations even and unlabored. Lungs essentially clear to auscultation bilaterally. HEART: Regular rate and rhythm. S1 and S2 heard. ABDOMEN: Soft. Nondistended. Nontender. EXTREMITIES: No clubbing or cyanosis. Peripheral pulses intact. No lower extremity edema NEUROLOGIC: Awake and alert. Oriented x 3. ASSESSMENT: Shortness of breath Non-STEMI Coronary artery calcifications, per CT Acute heart failure, type unknown, echo pending, proBNP 6870 Bilateral pleural effusions Bilateral pneumonia, per CTA at [facility] Diabetes Morbid obesity: BMI 47.4 Family history of premature coronary artery disease PLAN: Obtain 2D echo to assess cardiac structure and function Continue aspirin, atorvastatin, and metoprolol with the addition of Brilinta Plan to monitor patient 1 more night and discharge tomorrow At the time of discharge, patient will follow-up with Dr. De Paz in one 1 week. Further recommendations pending patient course Nurse practitioner note has been reviewed by physician. Signing provider agrees with the documented findings, assessment, and plan of care documented by MONOMER PURIFICATION OPERATOR as a scribe. Objective - Vital Signs Vital signs: Vital Signs Temp 97.9 F 02/06/25 20:00 Pulse 79 02/07/25 02:00 Resp 16 02/07/25 02:00 BP 100/65 02/07/25 02:00 Pulse Ox 95 02/07/25 02:00 FiO2 Intake & Output 02/06/25 02/07/25 02/07/25 18:59 06:59 18:59 Intake Total 880 118 Balance 880 118 Weight 130.1 kg Intake: IV 400 Oral 480 118 Other: Voiding Method Toilet - Labs CBC & Chem 7: 02/07/25 06:04 02/07/25 06:04 Labs: Abnormal Lab Results - Last 24 Hours (Table) 02/06/25 02/06/25 02/06/25 Range/Units 04:38 10:57 19:51 WBC 12.0 H (3.8-10.6) k/uL MCHC 30.4 L (31.0-37.0) g/dL Neutrophils # 8.6 H (1.3-7.7) k/uL Carbon Dioxide (22-30) mmol/L BUN (7-17) mg/dL Creatinine (0.52-1.04) mg/dL Glucose (74-99) mg/dL POC Glucose (mg/dL) 126 H (70-110) mg/dL HDL Cholesterol 26.60 L (40.00-60.00) mg/dL 02/07/25 02/07/25 02/07/25 Range/Units 06:01 06:04 06:04 WBC (3.8-10.6) k/uL MCHC 30.7 L (31.0-37.0) g/dL Neutrophils # (1.3-7.7) k/uL Carbon Dioxide 32 H (22-30) mmol/L BUN 30 H (7-17) mg/dL Creatinine 1.08 H (0.52-1.04) mg/dL Glucose 126 H (74-99) mg/dL POC Glucose (mg/dL) 132 H (70-110) mg/dL HDL Cholesterol (40.00-60.00) mg/dL
[2025-02-07 11:35] LABS: Glucose,Whole Blood 300 mg/dL (70-110)
[2025-02-07] MEDS ORDERED: DEXTROSE 50% SYRINGE 50 ML IVP PRN ×2 (11:37)
[2025-02-07] MEDS: INSULIN LISPRO (HumaLOG) 100 UNIT/ML 10 mL VL SQ SCH (11:50)
[2025-02-07 14:15] VITALS: BMI 47.7
[2025-02-07] MEDS: ONDANSETRON 4 MG/2 ML VIAL IVP PRN (14:16)
--- NOTE | 2025-02-07 14:52 | P.PN ---
Subjective Progress Note Date: 02/07/25 59-year-old female past medical history of diabetes presenting today transferred from [facility] after being found to have bilateral pneumonia with an elevated troponin. Patient states symptoms ongoing x 1 week. She states every time she gets up to walk to the bathroom or across her bedroom after walking approximate 20 feet she becomes significantly short of breath and then begins to feel panicked making her more short of breath. States that her son had upper respiratory symptoms 2 weeks ago and her is currently been treated bronchitis. Patient has not had any sputum production, fevers or chills. Denies palpitations, abdominal pain, melena or hematochezia. States that she typically gets bronchitis annually however her symptoms are different from when she is experienced over the course last week. She denies any lower extremity swelling. States she feels left-sided chest tightness when she ambulates for any distance but currently denies any chest pain. Patient has no history ACS, COPD or asthma. She is a non-smoker. States that her siblings and her father all have significant cardiac history with prior cardiac stents, had a brother who from ACS. - EKG reveals sinus tachycardia with nonspecific ST-T wave changes - CT scan obtained at [facility] revealed bilateral pneumonia, no evidence of pulmonary embolism, pleural effusions, and coronary artery ca lcifications. - Laboratory data: WBC 10.7. Hemoglobin 12.9. Platelet count 311. Sodium 138. Potassium 3.9. BUN 25. Creatinine 0.94. Troponin 1.910. 1.940. Troponin at outside facility 2.68. proBNP 6870. Objective - Vital Signs Vital signs: Vital Signs Temp 98.2 F 02/07/25 08:00 Pulse 88 02/07/25 08:00 Resp 18 02/07/25 08:00 BP 130/70 02/07/25 08:00 Pulse Ox 97 02/07/25 08:00 FiO2 Intake & Output 02/06/25 02/07/25 02/07/25 18:59 06:59 18:59 Intake Total 880 658 Balance 880 658 Weight 130.1 kg Intake: IV 400 Oral 480 658 Other: Voiding Method Toilet Toilet # Voids 1 - Exam CONSTITUTIONAL: No apparent distress, well appearing SKIN: Warm, dry, no jaundice, hives or petechiae EYES: Pupils are equally round, extraocular movements intact without nystagmus, clear conjunctiva, non-icteric sclera HENT: Normocephalic, atraumatic, moist mucus membranes, oropharynx clear without exudates NECK: , Full range of motion, normal appearance PULMONARY: Scant rhonchi in the mid left lung field, decreased breath sounds in the bases, mild tachypnea, no excess or muscle use or stridor no wheezes CARDIOVASCULAR: Mild echocardiac, regular rate, rhythm, normal S1 and S2. No appreciated murmurs, rubs or gallops. Strong radial pulses with intact distal perfusion. Bilateral 1+ nonpitting edema GASTROINTESTINAL: Soft, active bowel sounds throughout, non-tender, non- distended, no palpable masses, no rebound or guarding. No hepatosplenomegaly MUSCULOSKELETAL: Extremities have no gross deformity NEUROLOGIC:_a/o x 3, GCS 15, normal mentation and speech. Moves all extremities x 4 without motor or sensory deficit PSYCHIATRIC:_normal mood and affect, thought process is clear and linear - Labs CBC & Chem 7: 02/07/25 06:04 02/07/25 06:04 Labs: Abnormal Lab Results - Last 24 Hours (Table) 02/06/25 02/06/25 02/06/25 Range/Units 04:38 10:57 19:51 WBC 12.0 H (3.8-10.6) k/uL MCHC 30.4 L (31.0-37.0) g/dL Neutrophils # 8.6 H (1.3-7.7) k/uL Carbon Dioxide (22-30) mmol/L BUN (7-17) mg/dL Creatinine (0.52-1.04) mg/dL Glucose (74-99) mg/dL POC Glucose (mg/dL) 126 H (70-110) mg/dL HDL Cholesterol 26.60 L (40.00-60.00) mg/dL 02/07/25 02/07/25 02/07/25 Range/Units 06:01 06:04 06:04 WBC (3.8-10.6) k/uL MCHC 30.7 L (31.0-37.0) g/dL Neutrophils # (1.3-7.7) k/uL Carbon Dioxide 32 H (22-30) mmol/L BUN 30 H (7-17) mg/dL Creatinine 1.08 H (0.52-1.04) mg/dL Glucose 126 H (74-99) mg/dL POC Glucose (mg/dL) 132 H (70-110) mg/dL HDL Cholesterol (40.00-60.00) mg/dL Assessment and Plan Assessment: 1. Shortness of breath; acute CHF -BNP is elevated at 6870 -Patient has received 1 dose of IV Lasix 40 mg; cardiology on board -Recommending 2D echo; further recommendations once echocardiogram is completed 2. Non-STEMI -Patient has been placed on IV heparin; has been placed on aspirin, atorvastatin and metoprolol -Cardiology planning cardiac catheterization -Coronary artery calcifications, per CT 3. Bilateral pleural effusions; likely related to acute CHF versus pneumonia -Patient has been placed on IV diuretic; continue IV antibiotics 4. Bilateral pneumonia, per CTA at [facility] -Ceftriaxone 2 g IV daily; azithromycin 500 mg IV daily; will monitor CBC, CRP and procalcitonin -Recommend blood cultures and sputum culture 5. Diabetes mellitus with long-term insulin use; patient takes Lantus 100 mg twice daily, NovoLog 35 units subcu before every meal; Jardiance 25 mg daily; we will resume home regimen after cardiac catheterization; monitor Accu-Cheks q. ACH S with insulin sliding scale 6. Hypertension; metoprolol 25 mg twice daily 7. Hyperlipidemia; Lipitor 80 mg p.o. nightly 8. Morbid obesity: BMI 47.4; patient educated on need for weight reduction DVT prophylaxis; SCD/IV heparin CODE STATUS; full code
[2025-02-07 16:31] LABS: Glucose,Whole Blood 131 mg/dL (70-110)
[2025-02-07 20:21] LABS: Glucose,Whole Blood 201 mg/dL (70-110)
[2025-02-07] MEDS: NYSTATIN 100,000UNIT/GM CREAM 30 GM TUBE TOPICAL SCH (20:30)
[2025-02-08 06:25] LABS: Glucose,Whole Blood 144 mg/dL (70-110)
--- NOTE | 2025-02-08 08:49 | CA ---
Transthoracic Echo Report Name: Susan Florian Age: 59 Gender: F : 1965 Exam Date: 02/07/2025 10:45 Exam Location: [facility] Ht (in): 65 Wt (lb): 285 Ordering Physician: Margoth Guerra Attending/Referring Phys: Fretted Instruments Inspector Janine Stanton RDCS Procedure CPT: Indications: LV function, NSTEMI Cardiac Hx: Technical Quality: Poor Contrast 1: Definity Total Dose (mL): 2 Contrast 2: Total Dose (mL): MEASUREMENTS (Male / Female) Normal Values 2D ECHO LV Diastolic Diameter PLAX 5.8 cm 4.2 - 5.9 / 3.9 - 5.3 cm LV Systolic Diameter PLAX 4.9 cm IVS Diastolic Thickness 1.3 cm 0.6 - 1.0 / 0.6 - 0.9 cm LVPW Diastolic Thickness 1.0 cm 0.6 - 1.0 / 0.6 - 0.9 cm LV Relative Wall Thickness 0.4 RV Internal Dim ED PLAX 3.3 cm LA Systolic Diameter LX 4.7 cm 3.0 - 4.0 / 2.7 - 3.8 cm LA Volume 91.3 cm??? 18 - 58 / 22 - 52 cm??? LA Volume Index 36.4 cm???/m??? 16 - 28 cm???/m??? M-MODE Aortic Root Diameter MM 2.5 cm LA Systolic Diameter MM 4.0 cm LA Ao Ratio MM 1.6 AV Cusp Separation MM 1.8 cm DOPPLER MV Area PHT 4.1 cm??? Mitral E Point Velocity 122.1 cm/s Mitral A Point Velocity 74.4 cm/s Mitral E to A Ratio 1.6 MV Deceleration Time 183.1 ms TR Peak Velocity 238.8 cm/s TR Peak Gradient 22.8 mmHg FINDINGS Left Ventricle Left ventricular ejection fraction is estimated at 30-35%. Mildly increased septal wall thickness. Mildly increased left ventricular diastolic diameter. Hypokinetic inferior wall. [place] hypokinetic. Right Ventricle Mild right ventricular dilatation. Right ventricular systolic pressure within normal limits. Right Atrium Moderate right atrial dilatation. Left Atrium Moderately increased left atrial diameter. Moderately increased left atrial volume. Mildly increased left atrial area. Mitral Valve Structurally normal mitral valve. [id number] mitral regurgitation. No mitral stenosis. Aortic Valve Trileaflet aortic valve. No aortic valve stenosis or regurgitation. Tricuspid Valve Structurally normal tricuspid valve. Mild tricuspid regurgitation. No tricuspid stenosis. Pulmonic Valve Pulmonic valve not well visualized. Trace pulmonic regurgitation. No pulmonic stenosis. Pericardium Left pleural effusion. No pericardial effusion. Aorta Normal size aortic root and proximal ascending aorta. CONCLUSIONS LV EF 30-35%. Hypokinetic [place] and imferior wall. [id number] MR. Left pleural effusion. Previewed by: Dr. Ricky Blandon MD (Electronically Signed) Final Date: 08 February 2025 08:48
[2025-02-08] MEDS: LOSARTAN 25 MG TAB PO SCH (11:04)
--- NOTE | 2025-02-08 11:16 | P.PN ---
Subjective Progress Note Date: 02/08/25 HISTORY OF PRESENT ILLNESS: This is a 59-year-old female with a past medical history significant for di abetes and obesity. Patient does not follow with a loom technician. We have been asked to see the patient in consultation for elevated troponin. Patient examined at the bedside in the emergency room. Patient states she has been feeling short of breath for the past week. She states her had bronchitis and she thought she had it as well. She states she has been getting short of breath walking from 1 room to another. She denies any chest pain or pressure. She states that she went to an urgent care on Sunday and was told that her lungs were fine. However she states that her symptoms continued and she messaged her doctor again and was told to come to the emergency room. Patient presented to [facility] and was diagnosed with pneumonia. She was also found to have elevated troponins and was transferred to [facility] for further evaluation. She denies any known history of CAD. She reports having a cardiac catheterization greater than 10 years ago that was normal to her knowledge. She does report a significant family history of premature CAD. DIAGNOSTICS: - EKG reveals sinus tachycardia with nonspecific ST-T wave changes - CT scan obtained at [facility] revealed bilateral pneumonia, no evidence of pulmonary embolism, pleural effusions, and coronary artery calcifications. - Laboratory data: WBC 10.7. Hemoglobin 12.9. Platelet count 311. Sodium 138. Potassium 3.9. BUN 25. Creatinine 0.94. Troponin 1.910. 1.940. Troponin at outside facility 2.68. proBNP 6870. - Current home cardiac medications include none - No previous echocardiogram, stress test, or cardiac catheterization available in EMR for review 02/07 Patient seen and examined on the cardiac stepdown unit. Yesterday, patient underwent cardiac catheterization with Dr. De Paz which revealed critical disease involving the mid RCA, occluded left circumflex, mild to moderate diffuse disease in the LAD with no evidence of high-grade stenosis. Patient subsequently underwent successful PCI of the mid RCA and the left circumflex. Patient denies having chest pain chest pressure. Echocardiogram is pending. Blood pressure 130/70, heart rate 88, pulse ox 97% on 2 L nasal cannula. Repeat blood work reveals hemoglobin 12.8, BUN 30 creatinine 1.08. Triglycerides 99, cholesterol 145, LDL 98. Hemoglobin A1c 5.6. 02/08 Pain and examined. Echocardiogram reveals EF of 30 to 35%, mild to moderate MR, left pleural effusion. Blood pressure 139/76, heart rate 92, pulse ox 94% on 2 L nasal cannula. A1c 6.2. Patient denies chest pain. Echocardiogram reviewed with the patient and her . Blood pressure readings have been elevated for which losartan added. PHYSICAL EXAM: VITAL SIGNS: Reviewed. GENERAL: Well-developed in no acute distress. HEENT: Head is normocephalic. Pupils are equal, round. Sclerae anicteric. Mucous membranes of the mouth are moist. Neck supple. No JVD or thyromegaly LUNGS: Respirations even and unlabored. Lungs essentially clear to auscultation bilaterally. HEART: Regular rate and rhythm. S1 and S2 heard. ABDOMEN: Soft. Nondistended. Nontender. EXTREMITIES: No clubbing or cyanosis. Peripheral pulses intact. No lower extremity edema NEUROLOGIC: Awake and alert. Oriented x 3. ASSESSMENT: Shortness of breath Non-STEMI status post cardiac catheterization and PCI of the mid RCA 02/06 Ischemic cardiomyopathy with EF of 30 to 35% Coronary artery calcifications, per CT Acute heart failure, type unknown, echo pending, proBNP 6870 Bilateral pleural effusions Bilateral pneumonia, per CTA at [facility] Diabetes Morbid obesity: BMI 47.4 Family history of premature coronary artery disease PLAN: Continue aspirin, atorvastatin, and metoprolol with the addition of Brilinta Add losartan 25 mg daily Plan to monitor overnight and discharge home on Sunday At the time of discharge, patient will follow-up with Dr. De Paz in one 1 week. Nurse practitioner note has been reviewed by physician. Signing provider agrees with the documented findings, assessment, and plan of care documented by PRISON CLASSIFICATION COUNSELOR as a scribe. Objective - Vital Signs Vital signs: Vital Signs Temp 97.7 F 02/08/25 08:00 Pulse 92 02/08/25 08:00 Resp 22 02/08/25 08:00 BP 139/76 02/08/25 08:00 Pulse Ox 94 L 02/08/25 08:00 FiO2 Intake & Output 02/07/25 02/08/25 02/08/25 18:59 06:59 18:59 Intake Total 1316 540 720 Balance 1316 540 720 Weight 130.1 kg 132 kg Intake: Oral 1316 540 720 Other: Voiding Method Toilet Toilet Toilet # Voids 3 2 1 - Labs CBC & Chem 7: 02/07/25 06:04 02/07/25 06:04 Labs: Abnormal Lab Results - Last 24 Hours (Table) 02/07/25 02/07/25 02/07/25 Range/Units 11:33 16:29 20:19 POC Glucose (mg/dL) 300 H 131 H 201 H (70-110) mg/dL Hemoglobin A1c (<=6.0) % 02/08/25 02/08/25 Range/Units 05:57 06:23 POC Glucose (mg/dL) 144 H (70-110) mg/dL Hemoglobin A1c 6.2 H (<=6.0) %
[2025-02-08 11:21] LABS: Glucose,Whole Blood 188 mg/dL (70-110)
[2025-02-08 12:23] LABS: Basophils % (A) 0 %; Eosinophils # (A) 0.5 k/uL (0-0.7); Eosinophils % (A) 4 %; HCT 41.7 % (34.0-46.0); HGB 12.5 gm/dL (11.4-16.0); Hypochromasia Moderate; Lymphocytes # (A) 1.3 k/uL (1.0-4.8); Lymphocytes % (A) 13 %; MCH 25.9 pg (25.0-35.0); MCHC 29.9 g/dL (31.0-37.0); MCV 86.6 fL (80.0-100.0); Mean Platelet Volume 7.8; Monocytes # (A) 0.5 k/uL (0-1.0); Monocytes % (A) 5 %; Neutrophils # (A) 7.9 k/uL (1.3-7.7); Neutrophils % (A) 77 %; Platelet Count 303 k/uL (150-450); RBC 4.81 m/uL (3.80-5.40); WBC 10.3 k/uL (3.8-10.6)
[2025-02-08 12:33] LABS: African American GFR (CKD) 61 (>60 ml/min/1.73 sqM); Anion Gap 10 mmol/L; Blood Urea Nitrogen 32 mg/dL (7-17); Carbon Dioxide 28 mmol/L (22-30); Chloride 99 mmol/L (98-107); Glucose 156 mg/dL (74-99); Non-African American GFR(CKD) 53 (>60 ml/min/1.73 sqM); Potassium 4.6 mmol/L (3.5-5.1); Sodium 137 mmol/L (137-145)
[2025-02-08 16:09] LABS: Glucose,Whole Blood 182 mg/dL (70-110)
--- NOTE | 2025-02-08 19:33 | P.PN ---
Subjective Progress Note Date: 02/08/25 59-year-old female past medical history of diabetes presenting today transferred from [facility] after being found to have bilateral pneumonia with an elevated troponin. Patient states symptoms ongoing x 1 week. She states every time she gets up to walk to the bathroom or across her bedroom after walking approximate 20 feet she becomes significantly short of breath and then begins to feel panicked making her more short of breath. States that her son had upper respiratory symptoms 2 weeks ago and her is currently been treated bronchitis. Patient has not had any sputum production, fevers or chills. Denies palpitations, abdominal pain, melena or hematochezia. States that she typically gets bronchitis annually however her symptoms are different from when she is experienced over the course last week. She denies any lower extremity swelling. States she feels left-sided chest tightness when she ambulates for any distance but currently denies any chest pain. Patient has no history ACS, COPD or asthma. She is a non-smoker. States that her siblings and her father all have significant cardiac history with prior cardiac stents, had a brother who from ACS. - EKG reveals sinus tachycardia with nonspecific ST-T wave changes - CT scan obtained at [facility] revealed bilateral pneumonia, no evidence of pulmonary embolism, pleural effusions, and coronary artery ca lcifications. - Laboratory data: WBC 10.7. Hemoglobin 12.9. Platelet count 311. Sodium 138. Potassium 3.9. BUN 25. Creatinine 0.94. Troponin 1.910. 1.940. Troponin at outside facility 2.68. proBNP 6870. 02/08/2025 Patient is seen and evaluated in room at bedside; continues to report shortness of breath with activity but overall reports improvement Vital signs are reviewed and are stable Cardiology on board; echocardiogram reveals EF of 30 to 35% with mild to mo derate MR; patient to continue current therapy with aspirin, atorvastatin, metoprolol with addition of Brilinta; losartan 25 mg daily is added -Patient remains on IV antibiotics for pneumonia -- Continue with current treatment possible discharge in next 24 hours Objective - Vital Signs Vital signs: Vital Signs Temp 97.7 F 02/08/25 08:00 Pulse 92 02/08/25 08:00 Resp 22 02/08/25 08:00 BP 139/76 02/08/25 08:00 Pulse Ox 94 L 02/08/25 08:00 FiO2 Intake & Output 02/07/25 02/08/25 02/08/25 18:59 06:59 18:59 Intake Total 1316 540 720 Balance 1316 540 720 Weight 130.1 kg 132 kg Intake: Oral 1316 540 720 Other: Voiding Method Toilet Toilet Toilet # Voids 3 2 1 - Exam CONSTITUTIONAL: No apparent distress, well appearing SKIN: Warm, dry, no jaundice, hives or petechiae EYES: Pupils are equally round, extraocular movements intact without nystagmus, clear conjunctiva, non-icteric sclera HENT: Normocephalic, atraumatic, moist mucus membranes, oropharynx clear without exudates NECK: , Full range of motion, normal appearance PULMONARY: Scant rhonchi in the mid left lung field, decreased breath sounds in the bases, mild tachypnea, no excess or muscle use or stridor no wheezes CARDIOVASCULAR: Mild echocardiac, regular rate, rhythm, normal S1 and S2. No appreciated murmurs, rubs or gallops. Strong radial pulses with intact distal perfusion. Bilateral 1+ nonpitting edema GASTROINTESTINAL: Soft, active bowel sounds throughout, non-tender, non- distended, no palpable masses, no rebound or guarding. No hepatosplenomegaly MUSCULOSKELETAL: Extremities have no gross deformity NEUROLOGIC:_a/o x 3, GCS 15, normal mentation and speech. Moves all extremities x 4 without motor or sensory deficit PSYCHIATRIC:_normal mood and affect, thought process is clear and linear - Labs CBC & Chem 7: 02/08/25 12:01 02/08/25 12:01 Labs: Abnormal Lab Results - Last 24 Hours (Table) 02/07/25 02/07/25 02/07/25 Range/Units 11:33 16:29 20:19 POC Glucose (mg/dL) 300 H 131 H 201 H (70-110) mg/dL Hemoglobin A1c (<=6.0) % 02/08/25 02/08/25 Range/Units 05:57 06:23 POC Glucose (mg/dL) 144 H (70-110) mg/dL Hemoglobin A1c 6.2 H (<=6.0) % Assessment and Plan Assessment: 1. Shortness of breath; acute CHF -BNP is elevated at 6870 -Patient has received 1 dose of IV Lasix 40 mg; cardiology on board -Recommending 2D echo; further recommendations once echocardiogram is completed 2. Non-STEMI -Patient has been placed on IV heparin; has been placed on aspirin, atorvastatin and metoprolol -Cardiology planning cardiac catheterization -Coronary artery calcifications, per CT 3. Bilateral pleural effusions; likely related to acute CHF versus pneumonia -Patient has been placed on IV diuretic; continue IV antibiotics 4. Bilateral pneumonia, per CTA at [facility] -Ceftriaxone 2 g IV daily; azithromycin 500 mg IV daily; will monitor CBC, CRP and procalcitonin -Recommend blood cultures and sputum culture 5. Diabetes mellitus with long-term insulin use; patient takes Lantus 100 mg twice daily, NovoLog 35 units subcu before every meal; Jardiance 25 mg daily; we will resume home regimen after cardiac catheterization; monitor Accu-Cheks q. ACH S with insulin sliding scale 6. Hypertension; metoprolol 25 mg twice daily 7. Hyperlipidemia; Lipitor 80 mg p.o. nightly 8. Morbid obesity: BMI 47.4; patient educated on need for weight reduction DVT prophylaxis; SCD/IV heparin CODE STATUS; full code
[2025-02-08 20:32] LABS: Glucose,Whole Blood 183 mg/dL (70-110)
[2025-02-09 05:54] LABS: Glucose,Whole Blood 191 mg/dL (70-110)
[2025-02-09 06:01] LABS: Basophils % (A) 0 %; Eosinophils # (A) 0.6 k/uL (0-0.7); Eosinophils % (A) 6 %; HCT 38.8 % (34.0-46.0); HGB 11.7 gm/dL (11.4-16.0); Hypochromasia Moderate; Lymphocytes # (A) 1.3 k/uL (1.0-4.8); Lymphocytes % (A) 14 %; MCH 26.1 pg (25.0-35.0); MCHC 30.2 g/dL (31.0-37.0); MCV 86.5 fL (80.0-100.0); Mean Platelet Volume 7.6; Monocytes # (A) 0.4 k/uL (0-1.0); Monocytes % (A) 4 %; Neutrophils # (A) 7.1 k/uL (1.3-7.7); Neutrophils % (A) 75 %; Platelet Count 264 k/uL (150-450); RBC 4.49 m/uL (3.80-5.40); RDW 14.9 % (11.5-15.5); WBC 9.5 k/uL (3.8-10.6)
[2025-02-09 06:27] LABS: African American GFR (CKD) 61 (>60 ml/min/1.73 sqM); Anion Gap 7 mmol/L; Blood Urea Nitrogen 38 mg/dL (7-17); Calcium 8.6 mg/dL (8.4-10.2); Carbon Dioxide 30 mmol/L (22-30); Chloride 101 mmol/L (98-107); Glucose 189 mg/dL (74-99); Non-African American GFR(CKD) 53 (>60 ml/min/1.73 sqM); Potassium 5.2 mmol/L (3.5-5.1); Sodium 138 mmol/L (137-145)
--- NOTE | 2025-02-09 08:52 | XR ---
EXAMINATION TYPE: XR chest 2V DATE OF EXAM: 02/09/2025 8:37 AM COMPARISON: Chest radiograph from one day prior. CLINICAL INDICATION: Female, 59 years old with history of still exertional dyspnea; [facility] TECHNIQUE: XR chest 2V Frontal and lateral views of the chest. FINDINGS: Lungs/Pleura: Low lung volumes are present. There is no evidence of pleural effusion, focal consolida tion, or pneumothorax. Pulmonary vascularity: Pulmonary vascular congestion. Heart/mediastinum: Cardiomediastinal silhouette is unremarkable. Musculoskeletal: No acute osseous pathology. IMPRESSION: Low lung volumes with a generalized hazy appearance which could represent atelectasis versus pulmonar y edema correlate with serum BNP. [facility], , 02/09/2025 8:49 AM
[2025-02-09] MEDS ORDERED: SPIRONOLACTONE 25 MG TAB PO SCH (09:00)
[2025-02-09] MEDS: AZITHROMYCIN 500 MG TAB PO SCH (09:38)
[2025-02-09] MEDS: METOPROLOL SUCCINATE (ER) 50 MG TAB.ER.24H PO SCH (09:42)
[2025-02-09] MEDS: FUROSEMIDE 20 MG TAB PO SCH ×2 (09:42→19:00)
[2025-02-09 11:14] LABS: Glucose,Whole Blood 223 mg/dL (70-110)
--- NOTE | 2025-02-09 11:38 | P.PN ---
Subjective HISTORY OF PRESENT ILLNESS: This is a 59-year-old female with a past medical history significant for diabetes and obesity. Patient does not follow with a questioned documents examiner. We have been asked to see the patient in consultation for elevated troponin. Patient examined at the bedside in the emergency room. Patient states she has been feeling short of breath for the past week. She states her had bronchitis and she thought she had it as well. She states she has been getting short of breath walking from 1 room to another. She denies any chest pain or pressure. She states that she went to an urgent care on Sunday and was told that her lungs were fine. However she states that her symptoms continued and she messaged her doctor again and was told to come to the emergency room. Patient presented to [facility] and was diagnosed with pneumonia. She was also found to have elevated troponins and was transferred to [facility] for further evaluation. She denies any known history of CAD. She reports having a cardiac catheterization greater than 10 years ago that was normal to her knowledge. She does report a significant family history of premature CAD. DIAGNOSTICS: - EKG reveals sinus tachycardia with nonspecific ST-T wave changes - CT scan obtained at [facility] revealed bilateral pneumonia, no evidence of pulmonary embolism, pleural effusions, and coronary artery calcifications. - Laboratory data: WBC 10.7. Hemoglobin 12.9. Platelet count 311. Sodium 138. Potassium 3.9. BUN 25. Creatinine 0.94. Troponin 1.910. 1.940. Troponin at outside facility 2.68. proBNP 6870. - Current home cardiac medications include none - No previous echocardiogram, stress test, or cardiac catheterization available in EMR for review 02/07 Patient seen and examined on the cardiac stepdown unit. Yesterday, patient underwent cardiac catheterization with Dr. De Paz which revealed critical disease involving the mid RCA, occluded left circumflex, mild to moderate diffuse disease in the LAD with no evidence of high-grade stenosis. Patient subsequently underwent successful PCI of the mid RCA and the left circumflex. Patient denies having chest pain chest pressure. Echocardiogram is pending. Blood pressure 130/70, heart rate 88, pulse ox 97% on 2 L nasal cannula. Repeat blood work reveals hemoglobin 12.8, BUN 30 creatinine 1.08. Triglycerides 99, cholesterol 145, LDL 98. Hemoglobin A1c 5.6. 02/08 Pain and examined. Echocardiogram reveals EF of 30 to 35%, mild to moderate MR, left pleural effusion. Blood pressure 139/76, heart rate 92, pulse ox 94% on 2 L nasal cannula. A1c 6.2. Patient denies chest pain. Echocardiogram reviewed with the patient and her . Blood pressure readings have been elevated for which losartan added. 02/09/2025 Patient examined this morning at the bedside. Patient currently denies chest pain or pressure. She reports shortness of breath this morning. Vitals are stable. She remains on 3 L nasal cannula. PHYSICAL EXAM: VITAL SIGNS: Reviewed. GENERAL: Well-developed in no acute distress. HEENT: Head is normocephalic. Pupils are equal, round. Sclerae anicteric. Mucous membranes of the mouth are moist. Neck supple. No JVD or thyromegaly LUNGS: Respirations even and unlabored. Lungs essentially clear to auscultation bilaterally. HEART: Regular rate and rhythm. S1 and S2 heard. ABDOMEN: Soft. Nondistended. Nontender. EXTREMITIES: Normal range of motion. No clubbing or cyanosis. Peripheral pulses intact. No lower extremity edema NEUROLOGIC: Awake and alert. Oriented x 3. ASSESSMENT: Shortness of breath Non-STEMI, status post cardiac catheterization with PCI of the mid RCA and left circumflex Coronary artery calcifications, per CT Acute heart failure with reduced EF 30 to 35% Bilateral pleural effusions Bilateral pneumonia, per CTA at [facility] Diabetes Morbid obesity: BMI 47.4 Family history of premature coronary artery disease PLAN: Continue dual antiplatelet therapy with aspirin and Brilinta for 12 months Continue high intensity statin. LDL goal less than 70. Continue additional cardiac medications including losartan and Farxiga Discontinue metoprolol tartrate. Begin metoprolol succinate 50 mg daily Add Lasix 20 mg daily Add Aldactone 25 mg daily Repeat BMP in a.m. Further recommendations pending patient course Nurse practitioner note has been reviewed by physician. Signing provider agrees with the documented findings, assessment, and plan of care documented by TRIMMER TAILER as a scribe. Objective - Vital Signs Vital signs: Vital Signs Temp 98 F 02/09/25 03:31 Pulse 81 02/09/25 03:31 Resp 20 02/09/25 03:31 BP 118/62 02/09/25 03:31 Pulse Ox 95 02/09/25 03:31 FiO2 Intake & Output 0302/09/25 02/09/25 18:59 06:59 18:59 Intake Total 1500 180 Balance 1500 180 Weight 132.1 kg Intake: Oral 1500 180 Other: Voiding Method Toilet Toilet # Voids 3 1 - Labs CBC & Chem 7: 02/09/25 05:28 02/09/25 09:04 Labs: Abnormal Lab Results - Last 24 Hours (Table) 02/08/25 02/08/25 02/08/25 Range/Units 12:01 12:01 16:05 MCHC 29.9 L (31.0-37.0) g/dL Neutrophils # 7.9 H (1.3-7.7) k/uL Potassium (3.5-5.1) mmol/L BUN 32 H (7-17) mg/dL Creatinine 1.13 H (0.52-1.04) mg/dL Glucose 156 H (74-99) mg/dL POC Glucose (mg/dL) 182 H (70-110) mg/dL 02/08/25 02/09/25 02/09/25 Range/Units 20:28 05:28 05:28 MCHC 30.2 L (31.0-37.0) g/dL Neutrophils # (1.3-7.7) k/uL Potassium 5.2 H (3.5-5.1) mmol/L BUN 38 H (7-17) mg/dL Creatinine 1.13 H (0.52-1.04) mg/dL Glucose 189 H (74-99) mg/dL POC Glucose (mg/dL) 183 H (70-110) mg/dL 02/09/25 02/09/25 Range/Units 05:52 11:13 MCHC (31.0-37.0) g/dL Neutrophils # (1.3-7.7) k/uL Potassium (3.5-5.1) mmol/L BUN (7-17) mg/dL Creatinine (0.52-1.04) mg/dL Glucose (74-99) mg/dL POC Glucose (mg/dL) 191 H 223 H (70-110) mg/dL
[2025-02-09] MEDS: SPIRONOLACTONE 25 MG TAB PO SCH (12:36)
[2025-02-09 16:34] LABS: Glucose,Whole Blood 201 mg/dL (70-110)
--- NOTE | 2025-02-09 17:57 | P.CNPUL ---
History of Present Illness Consult date: 02/09/25 Requesting physician: Juju Lawrence Reason for consult: dyspnea Chief complaint: Shortness of breath History of present illness: This is a 59-year-old female, obese, admitted on 02/06/2025, apparently she was seen initially at [facility] and she was transferred to our hospital on that date mostly because of symptoms of shortness of breath and elevated troponin. Patient had significant shortness of breath, unable to walk more than 20 feet and she was developing shortness of breath. However she had no cough no fever no chills no hemoptysis and no chest pain. She did feel some chest tightness with exertion. Patient is known to have history of diabetes, morbid obesity, hiatal hernia, she is non-smoker, and she never has been diagnosed with COPD. Apparently her chest x-ray at [place] was read as bilateral pneumonia, but in fact she had prominent interstitial markings, and minimal left basilar atelectasis on the chest x-ray on her initial presentation to our institution. Chest x-ray today which I reviewed myself continues to show evidence of low lung volumes, atelectasis, and I suspect some component of pulmonary vascular congestion/pulmonary edema. Her procalcitonin level was normal, 0.11, however her BNP level was 6870. Echocardiogram showed severe LV dysfunction with ejection fraction of 30 to 35% and it also showed mild to moderate mitral regurgitation and small left pleural effusion. Today after evaluating the patient, I explained to the patient that she does not have pneumonia based on the clinical presentation, based on her chest x-ray findings, based on her procalcitonin level which is normal, and based on the fact that she has elevated BNP level and poor LV function which clearly explains her shortness of breath. As [id number] I discontinued her antibiotics. Review of Systems CONSTITUTIONAL: No fever, no malaise, no fatigue. HEENT: No recent visual problems or hearing problems. Denied any sore throat. CARDIOVASCULAR: No chest pain, orthopnea, PND, no palpitations, no syncope. PULMONARY: As noted in the HPI mostly shortness of breath but no cough no fever no chills no hemoptysis and no symptoms to suggest pneumonia. Her presentation symptom was mostly dyspnea on exertion. GASTROINTESTINAL: No diarrhea, no nausea, no vomiting, no abdominal pain. NEUROLOGICAL: No headaches, no weakness, no numbness. HEMATOLOGICAL: Denies any bleeding or petechiae. GENITOURINARY: Denies any burning micturition, frequency, or urgency. MUSCULOSKELETAL/RHEUMATOLOGICAL: Denies any joint pain, swelling, or any muscle pain. ENDOCRINE: Denies any polyuria or polydipsia. Past Medical History Past Medical History: Diabetes Mellitus History of Any Multi-Drug Resistant Organisms: None Reported Past Surgical History: Cholecystectomy, Hernia Repair, Hysterectomy, Orthopedic Surgery, Tonsillectomy Smoking Status: Never smoker Past Alcohol Use History: None Reported Past Drug Use History: None Reported Medications and Allergies Home Medications Medication Instructions Recorded Confirmed Type Cyclobenzaprine [Flexeril] 10 mg PO DAILY PRN 02/06/25 02/06/25 History Cyclobenzaprine [Flexeril] 10 mg PO HS 02/06/25 02/06/25 History Empagliflozin [Jardiance] 25 mg PO DAILY 02/06/25 02/06/25 History Escitalopram [Lexapro] 20 mg PO BID 02/06/25 02/06/25 History HYDROcodone/APAP 7.5-325MG [[place] 1 tab PO TID 02/06/25 02/06/25 History 7.5-325] INSULIN ASPART (NovoLOG) [NovoLOG 35 unit SQ AC-TID 02/06/25 02/06/25 History (formulary)] Insulin Glargine (Lantus) [Lantus 100 unit SQ BID 02/06/25 02/06/25 History Vial] Omeprazole [PriLOSEC] 40 mg PO DAILY 02/06/25 02/06/25 History buPROPion HCL [Wellbutrin XL] 150 mg PO DAILY 02/06/25 02/06/25 History busPIRone HCL [Buspirone HCl] 15 mg PO DAILY 02/06/25 02/06/25 History Allergies Allergy/AdvReac Type Severity Reaction Status Date / Time No Known Allergies Allergy Verified 02/06/25 08:43 Physical Exam Vitals: Vital Signs Temp Pulse Resp BP Pulse Ox 02/09/25 11:15 82 16 114/58 96 02/09/25 08:40 98.1 F 83 18 120/68 98 02/09/25 03:31 98 F 81 20 118/62 95 02/09/25 00:00 83 22 108/57 95 02/08/25 20:00 98.4 F 84 20 117/63 97 Intake and Output 02/09/25 02/09/25 02/09/25 06:59 14:59 22:59 Intake Total 180 180 Balance 180 180 Intake: Oral 180 180 Other: Voiding Method Toilet Toilet # Voids 1 1 Weight 132.1 kg CONSTITUTIONAL: Revealed 59-year-old female obese in no distress, on room air, O2 sats is 96%. SKIN: Warm, dry, no jaundice, hives or petechiae EYES: Pupils are equally round, extraocular movements intact without nystagmus, clear conjunctiva, non-icteric sclera HENT: Normocephalic, atraumatic, moist mucus membranes, oropharynx clear without exudates NECK: , Full range of motion, normal appearance PULMONARY: Diminished breath sounds at the bases no crackles rhonchi or wheezes CARDIOVASCULAR: Mild echocardiac, regular rate, rhythm, normal S1 and S2. No appreciated murmurs, rubs or gallops. Strong radial pulses with intact distal perfusion. Bilateral 1+ nonpitting edema GASTROINTESTINAL: Obese soft nontender no megaly, no rebound, no guarding MUSCULOSKELETAL: Extremities have no gross deformity NEUROLOGIC:_Alert and oriented x 3 no gross focal deficit PSYCHIATRIC:_Normal mood affect and no mental status examination Results - Laboratory Findings CBC and BMP: 02/09/25 05:28 02/09/25 09:04 PT/INR, D-dimer PT 11.3 sec (10.0-12.5) 02/07/25 06:04 INR 1.0 (<1.2) 02/07/25 06:04 Abnormal lab findings: Abnormal Labs 02/06/25 02/06/25 02/06/25 04:38 04:38 04:38 WBC 10.7 H MCHC 30.5 L Neutrophils # 7.8 H Potassium Carbon Dioxide BUN 25 H Creatinine Glucose POC Glucose (mg/dL) Hemoglobin A1c AST 37 H Troponin I 1.910 H* C-Reactive Protein 3.6 H Albumin 3.4 L HDL Cholesterol 02/06/25 02/06/25 02/06/25 04:38 07:14 10:57 WBC 12.0 H MCHC 30.4 L Neutrophils # 8.6 H Potassium Carbon Dioxide BUN Creatinine Glucose POC Glucose (mg/dL) Hemoglobin A1c AST Troponin I 1.940 H* C-Reactive Protein Albumin HDL Cholesterol 26.60 L 02/06/25 02/07/25 02/07/25 19:51 06:01 06:04 WBC MCHC 30.7 L Neutrophils # Potassium Carbon Dioxide BUN Creatinine Glucose POC Glucose (mg/dL) 126 H 132 H Hemoglobin A1c AST Troponin I C-Reactive Protein Albumin HDL Cholesterol 02/07/25 02/07/25 02/07/25 06:04 11:33 16:29 WBC MCHC Neutrophils # Potassium Carbon Dioxide 32 H BUN 30 H Creatinine 1.08 H Glucose 126 H POC Glucose (mg/dL) 300 H 131 H Hemoglobin A1c AST Troponin I C-Reactive Protein Albumin HDL Cholesterol 02/07/25 02/08/25 02/08/25 20:19 05:57 06:23 WBC MCHC Neutrophils # Potassium Carbon Dioxide BUN Creatinine Glucose POC Glucose (mg/dL) 201 H 144 H Hemoglobin A1c 6.2 H AST Troponin I C-Reactive Protein Albumin HDL Cholesterol 02/08/25 02/08/25 02/08/25 11:18 12:01 12:01 WBC MCHC 29.9 L Neutrophils # 7.9 H Potassium Carbon Dioxide BUN 32 H Creatinine 1.13 H Glucose 156 H POC Glucose (mg/dL) 188 H Hemoglobin A1c AST Troponin I C-Reactive Protein Albumin HDL Cholesterol 02/08/25 02/08/25 02/09/25 16:05 20:28 05:28 WBC MCHC 30.2 L Neutrophils # Potassium Carbon Dioxide BUN Creatinine Glucose POC Glucose (mg/dL) 182 H 183 H Hemoglobin A1c AST Troponin I C-Reactive Protein Albumin HDL Cholesterol 02/09/25 02/09/25 02/09/25 05:28 05:52 11:13 WBC MCHC Neutrophils # Potassium 5.2 H Carbon Dioxide BUN 38 H Creatinine 1.13 H Glucose 189 H POC Glucose (mg/dL) 191 H 223 H Hemoglobin A1c AST Troponin I C-Reactive Protein Albumin HDL Cholesterol 02/09/25 16:33 WBC MCHC Neutrophils # Potassium Carbon Dioxide BUN Creatinine Glucose POC Glucose (mg/dL) 201 H Hemoglobin A1c AST Troponin I C-Reactive Protein Albumin HDL Cholesterol - Diagnostic Findings Chest x-ray: image reviewed (As noted in HPI) Assessment and Plan Assessment: Impression: Dyspnea on exertion, mostly secondary to cardiomyopathy and LV dysfunction and suspect some component of acute pulmonary edema secondary to systolic dysfunction Dyspnea on exertion also secondary to obesity, and I suspect some component of deconditioning Clinically and radiographically, no clear-cut evidence of pneumonia hence I will discontinue antibiotics. Type 2 diabetes Morbid obesity, BMI of 47.4 Benign essential hypertension Dyslipidemia Recommendation: No need for antibiotics, patient does not have pneumonia Continue diuretics, increase Lasix to 20 mg twice daily as the patient has severe LV dysfunction and she has elevated BNP, and chest x-ray remains abnormal consistent with interstitial edema and pulmonary vascular congestion Titrate oxygen accordingly Procalcitonin level is normal Will continue to follow. Time with Patient: Greater than 30
--- NOTE | 2025-02-09 18:32 | P.PN ---
Subjective 59-year-old female past medical history of diabetes presenting today transferred from [facility] after being found to have bilateral pneumonia with an elevated troponin. Patient states symptoms ongoing x 1 week. She states every time she gets up to walk to the bathroom or across her bedroom after walking approximate 20 feet she becomes significantly short of breath and then begins to feel panicked making her more short of breath. States that her son had upper respiratory symptoms 2 weeks ago and her is currently been treated bronchitis. Patient has not had any sputum production, fevers or chills. Denies palpitations, abdominal pain, melena or hematochezia. States that she typically gets bronchitis annually however her symptoms are different from when she is experienced over the course last week. She denies any lower extremity swelling. States she feels left-sided chest tightness when she ambulates for any distance but currently denies any chest pain. Patient has no history ACS, COPD or asthma. She is a non-smoker. States that her siblings and her father all have significant cardiac history with prior cardiac stents, had a brother who from ACS. - EKG reveals sinus tachycardia with nonspecific ST-T wave changes - CT scan obtained at [facility] revealed bilateral pneumonia, no evidence of pulmonary embolism, pleural effusions, and coronary artery calcifications. - Laboratory data: WBC 10.7. Hemoglobin 12.9. Platelet count 311. Sodium 138. Potassium 3.9. BUN 25. Creatinine 0.94. Troponin 1.910. 1.940. Troponin at outside facility 2.68. proBNP 6870. 02/08/2025 Patient is seen and evaluated in room at bedside; continues to report shortness of breath with activity but overall reports improvement Vital signs are reviewed and are stable Cardiology on board; echocardiogram reveals EF of 30 to 35% with mild to moderate MR; patient to continue current therapy with aspirin, atorvastatin, metoprolol with addition of Brilinta; losartan 25 mg daily is added -Patient remains on IV antibiotics for pneumonia -- Continue with current treatment possible discharge in next 24 hours 02/09 Patient still complaining from some exertional dyspnea. She denies chest pain. No diarrhea or vomiting or abdominal pain Patient and male family member at bedside think she still needs attention for her breathing, other than that she was diagnosed with possible pneumonia however no fever or leukocytosis. Pro- Calcitonin was negative and antibiotic can be discontinued We repeated chest x-ray and reviewed by myself and agree has prominent interstitial markings and cardiomegaly consistent with CHF Patient was placed on more diuretics Lasix 20 mg twice daily and Aldactone Discussed with the staff and the patient management plan and they agreeable Review of systems CONSTITUTIONAL: No fever, no malaise, no fatigue. GASTROINTESTINAL: No diarrhea, no nausea, no vomiting, no abdominal pain. Normoactive bowel sounds. NEUROLOGICAL: No headaches, no weakness, no numbness. HEMATOLOGICAL: Denies any bleeding or petechiae. GENITOURINARY: Denies any burning micturition, frequency, or urgency. MUSCULOSKELETAL/RHEUMATOLOGICAL: Denies any joint pain, swelling, or any muscle pain. ENDOCRINE: Denies any polyuria or polydipsia. Active Medications Generic Name Dose Route Start Last Admin Trade Name Freq PRN Reason Stop Dose Admin Acetaminophen 650 mg 02/06/25 04:15 02/06/25 09:54 Acetaminophen Tab 325 Mg Tab PO 650 mg Q6HR PRN Administration Fever and/ or Pain Hydrocodone Bitart/Acetaminophen 1 each 02/06/25 22:00 02/09/25 16:50 Hydrocodone/Apap 7.5-325mg 1 Each Tab PO 1 each TID KENYA Administration Al Hydroxide/Mg Hydroxide 30 ml 02/06/25 15:38 Mag Hydrox/Al Hydrox/Simeth 30 Ml Cup PO Q4HR PRN Heartburn Albuterol Sulfate 2.5 mg 02/06/25 04:15 Albuterol Nebulized 2.5 Mg/3 Ml INHALATION RT-Q4H PRN Shortness Of Breath Or Wheezing Alprazolam 0.25 mg 02/06/25 10:16 Alprazolam 0.25 Mg Tab PO Q6HR PRN Mild Anxiety Alprazolam 0.5 mg 02/06/25 10:16 Alprazolam 0.5 Mg Tab PO Q6HR PRN Moderate Anxiety Aspirin 81 mg 02/07/25 09:00 02/09/25 09:39 Aspirin 81 Mg PO 81 mg DAILY KENYA Administration Atorvastatin Calcium 80 mg 02/06/25 21:00 02/08/25 20:43 Atorvastatin 80 Mg Tab PO 80 mg HS KENYA Administration Atropine Sulfate 0.5 mg 02/06/25 15:38 Atropine Sulfate 0.1 Mg/Ml 10ml Syringe IV ONCE PRN Symptomatic Bradycardia Bupropion HCl 150 mg 02/07/25 09:00 02/09/25 09:39 Bupropion Xl 150 Mg Tab.Er.24h PO 150 mg DAILY KENYA Administration Buspirone HCl 15 mg 02/07/25 09:00 02/09/25 09:38 Buspirone Hcl 5 Mg Tab PO 15 mg DAILY KENYA Administration Cyclobenzaprine HCl 10 mg 02/06/25 17:13 Cyclobenzaprine 10 Mg Tab PO DAILY PRN Muscle Spasm Cyclobenzaprine HCl 10 mg 02/06/25 21:00 02/08/25 20:43 Cyclobenzaprine 10 Mg Tab PO 10 mg HS KENYA Administration Dapagliflozin 10 mg 02/07/25 09:00 02/09/25 09:39 Dapagliflozin Propanediol 10 Mg Tablet PO 10 mg DAILY KENYA Administration Dextrose/Water 25 ml 02/07/25 11:37 Dextrose 50% Syringe 50 Ml IVP PER PROTOCOL PRN Hypoglycemia Protocol Dextrose/Water 50 ml 02/07/25 11:37 Dextrose 50% Syringe 50 Ml IVP PER PROTOCOL PRN Hypoglycemia Protocol Escitalopram Oxalate 20 mg 02/06/25 21:00 02/09/25 09:39 Escitalopram 20 Mg Tab PO 20 mg BID KENYA Administration Furosemide 20 mg 02/09/25 18:30 Furosemide 20 Mg Tab PO BID@0900,1600 KENYA Sodium Chloride 1,000 ml/ IV 1,000 mls @ 129.274 mls/hr 02/06/25 10:30 02/09/25 16:21 Solution IV Not Given .Q7H45M KENYA 1 ML/KG/HR Insulin Human Lispro 0 unit 02/07/25 12:30 02/09/25 16:51 Insulin Lispro (Humalog) 100 Unit/Ml 10 Ml Vl SQ 6 unit ACHS KENYA Administration Protocol Losartan Potassium 25 mg 02/08/25 10:30 02/09/25 09:42 Losartan 25 Mg Tab PO 25 mg DAILY KENYA Administration Metoprolol Succinate 50 mg 02/09/25 09:00 02/09/25 09:42 Metoprolol Succinate (Er) 50 Mg Tab.Er.24h PO 50 mg DAILY KENYA Administration Miscellaneous Information 1 each 02/06/25 04:15 Pneumonia Protocol Utilized 1 Each Misc PO ONCE PRN Per Protocol Nitroglycerin 0.4 mg 02/06/25 15:38 Nitroglycerin Sl Tabs 0.4 Mg Tab SUBLINGUAL Q5M PRN Chest Pain Nystatin 1 applic 02/07/25 21:00 02/09/25 09:43 Nystatin 100,000unit/Gm Cream 30 Gm Tube TOPICAL 1 applic BID [facility] Administration Protocol Ondansetron HCl 4 mg 02/07/25 14:11 02/08/25 09:13 Ondansetron 4 Mg/2 Ml Vial IVP 4 mg Q6HR PRN Administration Nausea And Vomiting Pantoprazole Sodium 40 mg 02/07/25 07:30 02/09/25 06:09 Pantoprazole 40 Mg Tablet PO 40 mg DAILY@0730 [facility] Administration Spironolactone 25 mg 02/09/25 11:45 02/09/25 12:36 Spironolactone 25 Mg Tab PO 25 mg DAILY [facility] Administration Ticagrelor 90 mg 02/07/25 09:00 02/09/25 09:39 Ticagrelor 90 Mg Tab PO 90 mg BID [facility] Administration Protocol Zolpidem Tartrate 5 mg 02/06/25 15:38 Zolpidem 5 Mg Tab PO HS PRN Insomnia Objective - Vital Signs Vital signs: Vital Signs Temp 98.2 F 02/09/25 16:00 Pulse 77 02/09/25 16:00 Resp 18 02/09/25 16:00 BP 115/57 02/09/25 16:00 Pulse Ox 96 02/09/25 16:00 FiO2 Intake & Output 02/08/25 02/09/25 02/09/25 18:59 06:59 18:59 Intake Total 1500 360 Balance 1500 360 Weight 132.1 kg Intake: Oral 1500 360 Other: Voiding Method Toilet Toilet Toilet # Voids 3 1 1 - Exam GENERAL: The patient is alert and oriented x3, not in any acute distress. Well developed, well nourished. Obese HEENT: Pupils are round and equally reacting to light. EOMI. No scleral icterus. No conjunctival pallor. Normocephalic, atraumatic. No pharyngeal erythema. No thyromegaly. CARDIOVASCULAR: S1 and S2 present. No murmurs, rubs, or gallops. -PULMONARY: Chest is clear to auscultation, no wheezing , bilateral basal crackles. ABDOMEN: Soft, nontender, nondistended, normoactive bowel sounds. No palpable organomegaly. MUSCULOSKELETAL: No joint swelling or deformity. -EXTREMITIES: No cyanosis, clubbing, bilateral pitting leg edema edema. NEUROLOGICAL: Gross neurological examination did not reveal any focal deficits. SKIN: No rashes. no petechiae. - Labs CBC & Chem 7: 02/09/25 05:28 02/09/25 09:04 Labs: Abnormal Lab Results - Last 24 Hours (Table) 02/08/25 02/09/25 02/09/25 Range/Units 20:28 05:28 05:28 MCHC 30.2 L (31.0-37.0) g/dL Potassium 5.2 H (3.5-5.1) mmol/L BUN 38 H (7-17) mg/dL Creatinine 1.13 H (0.52-1.04) mg/dL Glucose 189 H (74-99) mg/dL POC Glucose (mg/dL) 183 H (70-110) mg/dL 02/09/25 02/09/25 02/09/25 Range/Units 05:52 11:13 16:33 MCHC (31.0-37.0) g/dL Potassium (3.5-5.1) mmol/L BUN (7-17) mg/dL Creatinine (0.52-1.04) mg/dL Glucose (74-99) mg/dL POC Glucose (mg/dL) 191 H 223 H 201 H (70-110) mg/dL Assessment and Plan Assessment: 1. Acute exacerbation diastolic CHF -Echocardiogram reveals EF of 60 to 65% -Patient has been placed on Lasix 20 mg twice daily -Monitor strict CIELO's, daily weight, low-salt and fluid restricted diet Cardiology on board; appreciate recommendations -Pneumonia felt unlikely, antibiotics can be discontinued, pulmonary input is appreciated 2. Acute renal injury; we will monitor strict CIELO's, daily weights, renal function electrolytes; avoid nephrotoxins and hypotension; hold off on IV fluid hydration given acute CHF 3. Paroxysmal atrial fibrillation; patient is anticoagulated with Eliquis 5 mg twice daily 4. Hypertension; metoprolol 50 mg twice daily 5. Hyperlipidemia; Lipitor 40 mg p.o. nightly 6. Diabetes mellitus type 2; Lantus 20 units SQ nightly; continue home dose of Humalog 40 units SQ before every meal; Farxiga 10 mg daily 7. Chronic anemia; patient is status post EGD and colonoscopy in the past which was negative for any acute abnormality 8. Hypothyroidism; levothyroxine 175 mcg daily DVT prophylaxis; SCDs/Eliquis CODE STATUS; full code
[2025-02-09 20:07] LABS: Glucose,Whole Blood 281 mg/dL (70-110)
[2025-02-10 02:56] LABS: African American GFR (CKD) 68 (>60 ml/min/1.73 sqM); Anion Gap 5 mmol/L; Blood Urea Nitrogen 36 mg/dL (7-17); Calcium 8.9 mg/dL (8.4-10.2); Carbon Dioxide 28 mmol/L (22-30); Chloride 101 mmol/L (98-107); Glucose 158 mg/dL (74-99); Non-African American GFR(CKD) 59 (>60 ml/min/1.73 sqM); Potassium 4.3 mmol/L (3.5-5.1); Sodium 134 mmol/L (137-145)
[2025-02-10 04:21] VITALS: RESP 18
[2025-02-10 06:06] LABS: Glucose,Whole Blood 174 mg/dL (70-110)
[2025-02-10] MEDS: METOPROLOL SUCCINATE (ER) 25 MG TAB.ER.24H PO ONE (09:07)
[2025-02-10] MEDS ORDERED: METOPROLOL SUCCINATE (ER) 25 MG TAB.ER.24H PO SCH (09:30)
[2025-02-10 10:23] VITALS: TEMP 97.9
[2025-02-10 11:40] LABS: Glucose,Whole Blood 224 mg/dL (70-110)
--- NOTE | 2025-02-10 11:44 | P.PN ---
Subjective HISTORY OF PRESENT ILLNESS: This is a 59-year-old female with a past medical history significant for diabetes and obesity. Patient does not follow with a cloth inspector. We have been asked to see the patient in consultation for elevated troponin. Patient examined at the bedside in the emergency room. Patient states she has been feeling short of breath for the past week. She states her had bronchitis and she thought she had it as well. She states she has been getting short of breath walking from 1 room to another. She denies any chest pain or pressure. She states that she went to an urgent care on Sunday and was told that her lungs were fine. However she states that her symptoms continued and she messaged her doctor again and was told to come to the emergency room. Patient presented to [facility] and was diagnosed with pneumonia. She was also found to have elevated troponins and was transferred to [facility] for further evaluation. She denies any known history of CAD. She reports having a cardiac catheterization greater than 10 years ago that was normal to her knowledge. She does report a significant family history of premature CAD. DIAGNOSTICS: - EKG reveals sinus tachycardia with nonspecific ST-T wave changes - CT scan obtained at [facility] revealed bilateral pneumonia, no evidence of pulmonary embolism, pleural effusions, and coronary artery calcifications. - Laboratory data: WBC 10.7. Hemoglobin 12.9. Platelet count 311. Sodium 138. Potassium 3.9. BUN 25. Creatinine 0.94. Troponin 1.910. 1.940. Troponin at outside facility 2.68. proBNP 6870. - Current home cardiac medications include none - No previous echocardiogram, stress test, or cardiac catheterization available in EMR for review 02/07 Patient seen and examined on the cardiac stepdown unit. Yesterday, patient underwent cardiac catheterization with Dr. De Paz which revealed critical disease involving the mid RCA, occluded left circumflex, mild to moderate diffuse disease in the LAD with no evidence of high-grade stenosis. Patient subsequently underwent successful PCI of the mid RCA and the left circumflex. Patient denies having chest pain chest pressure. Echocardiogram is pending. Blood pressure 130/70, heart rate 88, pulse ox 97% on 2 L nasal cannula. Repeat blood work reveals hemoglobin 12.8, BUN 30 creatinine 1.08. Triglycerides 99, cholesterol 145, LDL 98. Hemoglobin A1c 5.6. 02/08 Pain and examined. Echocardiogram reveals EF of 30 to 35%, mild to moderate MR, left pleural effusion. Blood pressure 139/76, heart rate 92, pulse ox 94% on 2 L nasal cannula. A1c 6.2. Patient denies chest pain. Echocardiogram reviewed with the patient and her . Blood pressure readings have been elevated for which losartan added. 02/09/2025 Patient examined this morning at the bedside. Patient currently denies chest pain or pressure. She reports shortness of breath this morning. Vitals are stable. She remains on 3 L nasal cannula. 02/10/2025 Patient examined this morning at the bedside. Patient denies chest pain or pressure. She denies shortness of breath. Vital signs are stable. Blood pressure 141/67. PHYSICAL EXAM: VITAL SIGNS: Reviewed. GENERAL: Well-developed in no acute distress. HEENT: Head is normocephalic. Pupils are equal, round. Sclerae anicteric. Mucous membranes of the mouth are moist. Neck supple. No JVD or thyromegaly LUNGS: Respirations even and unlabored. Lungs essentially clear to auscultation bilaterally. HEART: Regular rate and rhythm. S1 and S2 heard. ABDOMEN: Soft. Nondistended. Nontender. EXTREMITIES: Normal range of motion. No clubbing or cyanosis. Peripheral pulses intact. No lower extremity edema NEUROLOGIC: Awake and alert. Oriented x 3. ASSESSMENT: Shortness of breath Non-STEMI, status post cardiac catheterization with PCI of the mid RCA and left circumflex Coronary artery calcifications, per CT Acute heart failure with reduced EF 30 to 35% Bilateral pleural effusions Bilateral pneumonia, per CTA at [facility] Diabetes Morbid obesity: BMI 47.4 Family history of premature coronary artery disease PLAN: Continue dual antiplatelet therapy with aspirin and Brilinta for 12 months Continue high intensity statin. LDL goal less than 70. Continue additional cardiac medications including losartan, Farxiga, metoprolol succinate, Lasix, and Aldactone Patient is stable for discharge home today from a cardiac standpoint Further recommendations pending patient course Nurse practitioner note has been reviewed by physician. Signing provider agrees with the documented findings, assessment, and plan of care documented by MAINTENANCE AND REPAIR WORKER as a scribe. Objective - Vital Signs Vital signs: Vital Signs Temp 97.9 F 02/10/25 08:50 Pulse 93 02/10/25 08:50 Resp 18 03/18/25 08:50 BP 141/67 02/10/25 08:50 Pulse Ox 100 02/10/25 08:50 FiO2 Intake & Output 02/09/25 02/10/25 02/10/25 18:59 06:59 18:59 Intake Total 540 320 118 Balance 540 320 118 Weight 132.2 kg Intake: Oral 540 320 118 Other: Voiding Method Toilet Toilet Toilet # Voids 1 1 1 - Labs CBC & Chem 7: 02/09/25 05:28 02/10/25 02:32 Labs: Abnormal Lab Results - Last 24 Hours (Table) 02/09/25 02/09/25 02/10/25 Range/Units 16:33 20:06 02:32 Sodium 134 L (137-145) mmol/L BUN 36 H (7-17) mg/dL Glucose 158 H (74-99) mg/dL POC Glucose (mg/dL) 201 H 281 H (70-110) mg/dL 02/10/25 02/10/25 Range/Units 06:05 11:38 Sodium (137-145) mmol/L BUN (7-17) mg/dL Glucose (74-99) mg/dL POC Glucose (mg/dL) 174 H 224 H (70-110) mg/dL
[2025-02-10 14:10] VITALS: BP 116/55; PULSE 83
--- NOTE | 2025-02-10 14:22 | CDI ---
Documentation Clarification Form Date: 02/10/2025 01:54:01 PM From: Sirisha Gama RN, CCDS Phone: [phone] Admit Date: 02/06/2025 04:16:00 AM Patient Name: Susan Florian Visit Number: [id number] Discharge Date: ATTENTION: The Clinical Documentation Specialists (CDI) and [facility] Coding Staff appreciate your assistance in clarifying documentation. Please respond to the clarification below the line at the bottom and electronically sign. The CDI & [facility] Coding staff will review the response and follow-up if needed. Please note: Queries are made part of the Legal Health Record. If you have any questions, please contact the author of this message via ITS. Doctorscroll kit Dagoberto E Sheet Conflicting documentation has been found in the medical record. As attending physician, please provide clarification. 02/09/25 Attending progress notes: Acute exacerbation diastolic CHF Echocardiogram reveals EF of 60 to 65% 02/09/25 Cardiology progress note: Acute heart failure with reduced EF 30 to 35% Echocardiogram reveals EF of 30 to 35%, mild to moderate MR, mild to moderate MR, left pleural effusion. History/Risk Factors: Diabetes Mellitus Clinical Indicators: 59-year-old female transferred from [facility] for bilateral pneumonia with and elevated troponin. She had shortness of breath ruled in for CHF. 02/07/25 ECHO: LV EF 30-35%. Hypokinetic [place] and inferior wall. [id number] MR. Left pleural effusion. Treatment: Technical Stenographer /Telemetry ASA PO Daily, Lipitor 80 MG PO HS, Lasix 40 IV x2 then PO per orders Cozaar 25 MP PO Daily, Toprol Xl 75 MG PO Daily, Please clarify which diagnosis is most appropriate: [x ] Acute heart failure with reduced EF 30 to 35% (ECHO 02/07/25) [ ] Acute exacerbation diastolic CHF Echocardiogram reveals EF of 60 to 65% [ ] Other (please specify) [ ] Unable to determine (Template Last Revised: January 2021) MTDD
--- NOTE | 2025-02-10 14:25 | P.DS ---
Providers Date of admission: 02/06/25 04:16 Expected date of discharge: 02/10/25 Attending physician: Niyah Seymour Consults: 02/06/25 04:15 Consult Physician Routine Consulting Provider: Vitor Hector Consult Reason/Comments: Elevated trop Do you want consulting provider notified?: Yes, Notify in am 02/06/25 15:38 Consult Physician Routine Consulting Provider: [facility] Consult Reason/Comments: Post Interventional patient Do you want consulting provider notified?: Already Contacted 02/09/25 07:56 Consult Physician Routine Consulting Provider: Atif Wilson Consult Reason/Comments: still has some exertional dyspnea Do you want consulting provider notified?: Yes Primary care physician: [facility] Hospital Course: Discharge diagnoses; Dyspnea on exertion Acute hypoxic respiratory failure Non-STEMI, status post cardiac catheterization with PCI of the mid RCA and left circumflex Coronary artery calcifications, per CT Acute heart failure with reduced EF 30 to 35% Bilateral pleural effusions Bilateral pneumonia, per CTA at [facility] Diabetes Morbid obesity: BMI 47.4 Family history of premature coronary artery disease Hospital course; 59-year-old female past medical history of diabetes presenting today transferred from [facility] after being found to have bilateral pneumonia with an elevated troponin. Patient states symptoms ongoing x 1 week. She states every time she gets up to walk to the bathroom or across her bedroom after walking approximate 20 feet she becomes significantly short of breath and then begins to feel panicked making her more short of breath. States that her son had upper respiratory symptoms 2 weeks ago and her is currently been treated bronchitis. Patient has not had any sputum production, fevers or chills. Denies palpitations, abdominal pain, melena or hematochezia. States that she typically gets bronchitis annually however her symptoms are different from when she is experienced over the course last week. She denies any lower extremity swelling. States she feels left-sided chest tightness when she ambulates for any distance but currently denies any chest pain. Patient has no history ACS, COPD or asthma. She is a non-smoker. States that her siblings and her father all have significant cardiac history with prior cardiac stents, had a brother who from ACS. - EKG reveals sinus tachycardia with nonspecific ST-T wave changes - CT scan obtained at [facility] revealed bilateral pneumonia, no evidence of pulmonary embolism, pleural effusions, and coronary artery calcifications. - Laboratory data: WBC 10.7. Hemoglobin 12.9. Platelet count 311. Sodium 138. Potassium 3.9. BUN 25. Creatinine 0.94. Troponin 1.910. 1.940. Troponin at outside facility 2.68. proBNP 6870. 02/08/2025 Patient is seen and evaluated in room at bedside; continues to report shortness of breath with activity but overall reports improvement Vital signs are reviewed and are stable Cardiology on board; patient underwent cardiac catheterization with Dr. De Paz which revealed critical disease involving the mid RCA, occluded left circumflex, mild to moderate diffuse disease in the LAD with no evidence of high-grade stenosis. Patient subsequently underwent successful PCI of the mid RCA and the left circumflex.echocardiogram reveals EF of 30 to 35% with mild to moderate MR; patient to continue current therapy with aspirin, atorvastatin, metoprolol with addition of Brilinta; losartan 25 mg daily is added -Patient remains on IV antibiotics for pneumonia -- Continue with current treatment possible discharge in next 24 hours 02/09 Patient still complaining from some exertional dyspnea. She denies chest pain. No diarrhea or vomiting or abdominal pain Patient and male family member at bedside think she still needs attention for her breathing, other than that she was diagnosed with possible pneumonia however no fever or leukocytosis. Pro- Calcitonin was negative and antibiotic can be discontinued We repeated chest x-ray and reviewed by myself and agree has prominent interstitial markings and cardiomegaly consistent with CHF Patient was placed on more diuretics Lasix 20 mg twice daily and Aldactone Discussed with the staff and the patient management plan and they agreeable 02/10. Patient seen and examined. Blood work this morning showed sodium 134, potassium 4.3, BUN 30, creatinine 1.04. Cardiology cleared the patient for discharge. Outpatient follow-up with PCP, cardiology and pulmonary PHYSICAL EXAMINATION: GENERAL: The patient is alert and oriented x3, not in any acute distress. Well developed, well nourished. HEENT: Pupils are round and equally reacting to light. EOMI. No scleral icterus. No conjunctival pallor. Normocephalic, atraumatic. No pharyngeal erythema. No thyromegaly. CARDIOVASCULAR: S1 and S2 present. No murmurs, rubs, or gallops. PULMONARY: Chest is clear to auscultation, no wheezing or crackles. ABDOMEN: Soft, nontender, nondistended, normoactive bowel sounds. No palpable organomegaly. MUSCULOSKELETAL: No joint swelling or deformity. EXTREMITIES: No cyanosis, clubbing, or pedal edema. NEUROLOGICAL: Gross neurological examination did not reveal any focal deficits. SKIN: No rashes. Dictation was produced using [employer] dictation software. please excuse any grammatical, word or spelling errors. Patient Condition at Discharge: Stable Plan - Discharge Summary Discharge Rx Participant: Yes New Discharge Prescriptions: New Ticagrelor [Brilinta] 90 mg PO BID 30 Days #60 tab Furosemide [Lasix] 20 mg PO BID@0900,1600 30 Days #60 tab Spironolactone [Aldactone] 25 mg PO DAILY 30 Days #30 tab Aspirin 81 mg PO DAILY #30 tab Losartan [Cozaar] 25 mg PO DAILY 30 Days #30 tab Atorvastatin [Lipitor] 80 mg PO HS 30 Days #30 tab Nitroglycerin Sl Tabs [Nitrostat] 0.4 mg SUBLINGUAL Q5M PRN #30 tab PRN Reason: Chest Pain Metoprolol Succinate (ER) [Toprol XL] 75 mg PO DAILY 30 Days #30 tab Continue Cyclobenzaprine [Flexeril] 10 mg PO DAILY PRN PRN Reason: Muscle Spasm Omeprazole [PriLOSEC] 40 mg PO DAILY Insulin Glargine (Lantus) [Lantus Vial] 100 unit SQ BID Empagliflozin [Jardiance] 25 mg PO DAILY Cyclobenzaprine [Flexeril] 10 mg PO HS buPROPion HCL [Wellbutrin XL] 150 mg PO DAILY INSULIN ASPART (NovoLOG) [NovoLOG (formulary)] 35 unit SQ AC-TID busPIRone HCL 15 mg PO DAILY HYDROcodone/APAP 7.5-325MG [Ford 7.5-325] 1 tab PO TID Escitalopram [Lexapro] 20 mg PO BID Discharge Medication List Cyclobenzaprine [Flexeril] 10 mg PO DAILY PRN 02/06/25 [History] Cyclobenzaprine [Flexeril] 10 mg PO HS 02/06/25 [History] Empagliflozin [Jardiance] 25 mg PO DAILY 02/06/25 [History] Escitalopram [Lexapro] 20 mg PO BID 02/06/25 [History] HYDROcodone/APAP 7.5-325MG [Ford 7.5-325] 1 tab PO TID 02/06/25 [History] INSULIN ASPART (NovoLOG) [NovoLOG (formulary)] 35 unit SQ AC-TID 02/06/25 [History] Insulin Glargine (Lantus) [Lantus Vial] 100 unit SQ BID 02/06/25 [History] Omeprazole [PriLOSEC] 40 mg PO DAILY 02/06/25 [History] buPROPion HCL [Wellbutrin XL] 150 mg PO DAILY 02/06/25 [History] busPIRone HCL 15 mg PO DAILY 02/06/25 [History] Aspirin 81 mg PO DAILY #30 tab 02/10/25 [Rx] Atorvastatin [Lipitor] 80 mg PO HS 30 Days #30 tab 02/10/25 [Rx] Furosemide [Lasix] 20 mg PO BID@0900,1600 30 Days #60 tab 02/10/25 [Rx] Losartan [Cozaar] 25 mg PO DAILY 30 Days #30 tab 02/10/25 [Rx] Metoprolol Succinate (ER) [Toprol XL] 75 mg PO DAILY 30 Days #30 tab 02/10/25 [Rx] Nitroglycerin Sl Tabs [Nitrostat] 0.4 mg SUBLINGUAL Q5M PRN #30 tab 02/10/25 [Rx] Spironolactone [Aldactone] 25 mg PO DAILY 30 Days #30 tab 02/10/25 [Rx] Ticagrelor [Brilinta] 90 mg PO BID 30 Days #60 tab 02/10/25 [Rx] Follow up Appointment(s)/Referral(s): Valentín De Paz MD [STAFF PHYSICIAN] - 1 Week Nonstaff,Physician [REFERRING] - 1-2 days Atif Wilson MD [STAFF PHYSICIAN] - 1 Week Activity/Diet/Wound Care/Special Instructions: heart healthy diet ] activity is restricted till you see your doctor Discharge Disposition: HOME SELF-CARE
--- NOTE | 2025-02-10 14:44 | P.PN ---
Subjective Progress Note Date: 02/10/25 Principal diagnosis: Shortness of breath secondary to LV dysfunction and cardiomyopathy. This is a 59-year-old female, obese, admitted on 02/06/2025, apparently she was seen initially at [facility] and she was transferred to our hospital on that date mostly because of symptoms of shortness of breath and elevated troponin. Patient had significant shortness of breath, unable to walk more than 20 feet and she was developing shortness of breath. However she had no cough no fever no chills no hemoptysis and no chest pain. She did feel some chest tightness with exertion. Patient is known to have history of diabetes, morbid obesity, hiatal hernia, she is non-smoker, and she never has been diagnosed with COPD. Apparently her chest x-ray at [place] was read as bilateral pneumonia, but in fact she had prominent interstitial markings, and minimal left basilar atelectasis on the chest x-ray on her initial presentation to our institution. Chest x-ray today which I reviewed myself continues to show evidence of low lung volumes, atelectasis, and I suspect some component of pulmonary vascular congestion/pulmonary edema. Her procalcitonin level was normal, 0.11, however her BNP level was 6870. Echocardiogram showed severe LV dysfunction with ejection fraction of 30 to 35% and it also showed mild to moderate mitral regurgitation and small left pleural effusion. Today after evaluating the patient, I explained to the patient that she does not have pneumonia based on the clinical presentation, based on her chest x-ray findings, based on her procalcitonin level which is normal, and based on the fact that she has elevated BNP level and poor LV function which clearly explains her shortness of breath. As [id number] I discontinued her antibiotics. Patient was evaluated today on 02/10/2025, feeling better breathing easier patient is on 2 L nasal cannula O2 sat is 94%. Patient is feeling better, breathing easier, and yesterday I have increased her Lasix dose. Patient is being considered for discharge home today, and I will clear the patient for di susu if cleared by other consultants/cardiology. Labs today were reviewed she had relatively normal electrolytes BUN is 36 creatinine 1.04 Objective - Vital Signs Vital signs: Vital Signs Temp 97.9 F 02/10/25 08:50 Pulse 83 02/10/25 11:35 Resp 18 02/10/25 11:35 BP 116/55 02/10/25 11:35 Pulse Ox 94 L 02/10/25 11:35 FiO2 Intake & Output 02/09/25 02/10/25 02/10/25 18:59 06:59 18:59 Intake Total 540 320 118 Balance 540 320 118 Weight 132.2 kg Intake: Oral 540 320 118 Other: Voiding Method Toilet Toilet Toilet # Voids 1 1 1 - Exam CONSTITUTIONAL: Revealed 59-year-old female obese in no distress, on room air, O2 sats is 96%. SKIN: Warm, dry, no jaundice, hives or petechiae EYES: Pupils are equally round, extraocular movements intact without nystagmus, clear conjunctiva, non-icteric sclera HENT: Normocephalic, atraumatic, moist mucus membranes, oropharynx clear without exudates NECK: , Full range of motion, normal appearance PULMONARY: Diminished breath sounds at the bases no crackles rhonchi or wheezes CARDIOVASCULAR: Mild echocardiac, regular rate, rhythm, normal S1 and S2. No appreciated murmurs, rubs or gallops. Strong radial pulses with intact distal perfusion. Bilateral 1+ nonpitting edema GASTROINTESTINAL: Obese soft nontender no megaly, no rebound, no guarding MUSCULOSKELETAL: Extremities have no gross deformity NEUROLOGIC:_Alert and oriented x 3 no gross focal deficit PSYCHIATRIC:_Normal mood affect and no mental status examination - Labs CBC & Chem 7: 02/09/25 05:28 02/10/25 02:32 Labs: Abnormal Lab Results - Last 24 Hours (Table) 02/09/25 02/09/25 02/10/25 Range/Units 16:33 20:06 02:32 Sodium 134 L (137-145) mmol/L BUN 36 H (7-17) mg/dL Glucose 158 H (74-99) mg/dL POC Glucose (mg/dL) 201 H 281 H (70-110) mg/dL 02/10/25 02/10/25 Range/Units 06:05 11:38 Sodium (137-145) mmol/L BUN (7-17) mg/dL Glucose (74-99) mg/dL POC Glucose (mg/dL) 174 H 224 H (70-110) mg/dL Assessment and Plan Assessment: Impression: Dyspnea on exertion, mostly secondary to cardiomyopathy and LV dysfunction and suspect some component of acute pulmonary edema secondary to systolic dysfunction Dyspnea on exertion also secondary to obesity, and I suspect some component of deconditioning Clinically and radiographically, no clear-cut evidence of pneumonia hence I will discontinue antibiotics. Type 2 diabetes Morbid obesity, BMI of 47.4 Benign essential hypertension Dyslipidemia Recommendation: Agree with discharge planning if cleared by cardiology Continue Lasix on outpatient basis Arrange for possible home O2 if necessary Again cleared for discharge Time with Patient: Less than 30
[2025-02-11] MEDS ORDERED: METOPROLOL SUCCINATE (ER) 25 MG TAB.ER.24H PO SCH (09:00)
== END 2025-02-10 16:16 | disposition home or self-care (01) | DRG 321 ==
LOC: EC 03:49 → 4SSUR 04:15 → OBSVTOIN 04:16 → 6NMEDSUR 10:51 → 3SCARD 10:57
PROVIDERS: ADMIT Hospitalist; ATTEND Hospitalist
PROC: 027135Z Dilation of Coronary Artery, Two Arteries with Two Drug-eluting Intraluminal Devices, Percutaneous Approach (ICD-10-PCS; principal; 2025-02-06 12:50)
PROC: 4A023N7 Measurement of Cardiac Sampling and Pressure, Left Heart, Percutaneous Approach (ICD-10-PCS; 2025-02-06 12:50)
PROC: B2111ZZ Fluoroscopy of Multiple Coronary Arteries using Low Osmolar Contrast (ICD-10-PCS; 2025-02-06 12:50)
PROC: B34HZZ3 Ultrasonography of Right Upper Extremity Arteries, Intravascular (ICD-10-PCS; 2025-02-06 12:50)
DX: I21.4 Non-ST elevation (NSTEMI) myocardial infarction (principal); I50.21 Acute systolic (congestive) heart failure; J18.9 Pneumonia, unspecified organism; J96.01 Acute respiratory failure with hypoxia; I11.0 Hypertensive heart disease with heart failure; E11.9 Type 2 diabetes mellitus without complications; E66.01 Morbid (severe) obesity due to excess calories; E03.9 Hypothyroidism, unspecified; I08.1 Rheumatic disorders of both mitral and tricuspid valves; Z68.42 Body mass index [BMI] 45.0-49.9, adult; N17.9 Acute kidney failure, unspecified; I48.0 Paroxysmal atrial fibrillation; Z79.4 Long term (current) use of insulin; R00.0 Tachycardia, unspecified; Z79.01 Long term (current) use of anticoagulants; E78.5 Hyperlipidemia, unspecified; I25.5 Ischemic cardiomyopathy; I25.10 Atherosclerotic heart disease of native coronary artery without angina pectoris; Z79.02 Long term (current) use of antithrombotics/antiplatelets; Z79.82 Long term (current) use of aspirin; Z79.84 Long term (current) use of oral hypoglycemic drugs; Z79.890 Hormone replacement therapy; Z79.899 Other long term (current) drug therapy; Z82.49 Family history of ischemic heart disease and other diseases of the circulatory system; Z90.710 Acquired absence of both cervix and uterus
CPT/HCPCS: 36415; 71046; 80048; 80053; 80061; 83036; 83735; 83880; 84132; 84145; 84484; 85025; 85610; 85730; 86140; 87449; 92978; 92979; 93306; 93458; 96365; 96366; 96368; 96372; 96375; 96376; 99291